=== PATIENT | female | born 1940 | race Asian ===

== ENCOUNTER → 2016-05-24 | Outpatient (CLI) | payer MEDICAID ==
[~2016-05-24] MED LIST: AMLO-511 PO; ASPI81 PO; ATEN25 PO; CALC-724 PO; FISH1CAP49 PO; HYDR25 PO; LOSA25TA21 PO; METF500T4 PO; SIMV-260 PO; VITAD1000 PO
== END | disposition home or self-care (01) ==
LOC: RADMN 13:14
PROVIDERS: ATTEND Internal Medicine
DX: M81.0 Age-related osteoporosis without current pathological fracture (principal); J84.10 Pulmonary fibrosis, unspecified; N28.1 Cyst of kidney, acquired; Z87.891 Personal history of nicotine dependence
CPT/HCPCS: 71250; 77080

== ENCOUNTER 2024-01-24 14:11 | Inpatient (IN) | payer MEDICARE, MEDICAID ==
[~2024-01-24] VITALS: Ht 160 cm; Wt 66.0 kg
[2024-01-24] VITALS (7 sets, daily range): BP systolic 139; BP diastolic 63; PULSE 71–110; RESP 16; TEMP 98; O2SAT 97–100
[~2024-01-24 14:11] MED LIST changes: +AMLO-257 PO; -AMLO-511 PO; +ASPI-1450 PO; -ASPI81 PO; +ATEN-73 PO; -ATEN25 PO; +CHOL100018 PO; -HYDR25 PO; +HYDR25TA84 PO; +LOSA-381 PO; -LOSA25TA21 PO; +METF-444 PO; -METF500T4 PO; -VITAD1000 PO
[2024-01-24] MEDS ORDERED: ETOMIDATE 2 MG/ML 10 ML VIAL ONE (14:24)
[2024-01-24] MEDS ORDERED: ROCURONIUM BROMIDE 10 MG/ML 5 ML VIAL ONE (14:25)
[2024-01-24] MEDS ORDERED: 0.9% SODIUM CHLORIDE 10 ML SYRINGE IVP PRN (14:45)
[2024-01-24] MEDS ORDERED: CALC-1174 PO (14:47)
[2024-01-24] MEDS ORDERED: OMEG100033 PO (14:47)
[2024-01-24] MEDS ORDERED: ATEN-72 PO (14:47)
[2024-01-24] MEDS ORDERED: CHOL25TA4 PO (14:47)
[2024-01-24] MEDS ORDERED: NOREPINEPHRINE 8 MG/0.9 % NACL 250 ML IV ONE (14:48)
[2024-01-24] MEDS: SODIUM CHLORIDE 0.9% 2,050 ML IV ONE (14:48)
[2024-01-24] MEDS ORDERED: SODIUM CHLORIDE 0.9% 500 ML IV ONE (15:00)
[2024-01-24] MEDS: PIPERACILLIN/TAZO 3.375 GM/D5W 50 ML IV ONE (15:16)
[2024-01-24 15:27] LABS: ABG BASE EXCESS 1.6 mmol/L (-2.0-3.0); ABG CARBOXYHEMOGLOBIN 0.3 % (0.5-1.5); ABG HCO3 25.5 mmol/L (21.0-28.0); ABG METHEMOGLOBIN 0.9 % (0.0-1.5); ABG OXYGEN CONTENT 14.4 mL/dL (15.0-23.0); ABG OXYGEN SATURATION 97.8 % (94.0-98.0); ABG OXYHEMOGLOBIN 96.6 % (94.0-98.0); ABG PCO2 50 mmHg (32.0-45.0); ABG PH 7.356 (7.350-7.450); ABG TOTAL HEMOGLOBIN 10.5 G/dL (12.0-16.0); PO2, ARTERIAL BG 85.7 mmHg (83.0-108.0); SOURCE, BLOOD GAS ARTERIAL
[2024-01-24 15:28] LABS: ALLEN TEST, BLOOD GAS POS; O2 DEVICE,BLOOD GAS VENTILATOR (ROOM AIR); SITE, BLOOD GAS RT RADIAL; VT, ABG 300 ml
[2024-01-24 15:29] LABS: PEEP,BG 5 cm H2O
[2024-01-24] MEDS: NOREPINEPHRINE 8 MG/0.9 % NACL 250 ML IV PRN (15:30)
[2024-01-24 15:33] LABS: ANION GAP 5 mmol/L (8-16); BASOPHILS % (AUTO) 0.6 % (0.0-2.0); CALCIUM, TOTAL 7.9 mg/dL (8.8-10.5); CARBON DIOXIDE 31 mmol/L (22-29); CHLORIDE 90 mmol/L (98-107); CREATININE 0.56 mg/dL (0.60-1.30); EOSINOPHILS % (AUTO) 0.1 % (1.0-6.0); GLOMERULAR FILTR. RATE CALC > 60 mL/min (>60); GLUCOSE,RANDOM 337 mg/dL (70-110); HEMATOCRIT 27.4 % (36-46); HEMOGLOBIN 8.9 g/dL (12.0-16.0); LYMPHOCYTES % (AUTO) 8.1 % (22.0-44.0); MEAN CORPUSCULAR HEMOGLOBIN 29.8 pg (26.0-34.0); MEAN CORPUSCULAR HGB CONC 32.5 G/dL (31.0-37.0); MEAN CORPUSCULAR VOLUME 92 fL (80-100); MONOCYTES # (AUTO) 0.6 K/uL (0.1-1.0); MONOCYTES % (AUTO) 4.9 % (2.0-9.0); NEUTROPHILS # (AUTO) 10.6 K/uL (1.8-7.7); PLATELET COUNT (AUTO) 560 K/uL (150-450); POTASSIUM 4.7 mmol/L (3.5-5.1); RED BLOOD CELL COUNT(AUTO) 2.99 MIL/uL (4.00-5.20); RED CELL DISTRIBUTION WIDTH 15.2 % (11.5-14.5); SODIUM SERUM 126 mmol/L (136-145); UREA NITROGEN, BLOOD 19 mg/dL (7-18); WHITE BLOOD COUNT (AUTO) 12.3 K/uL (4.5-11.0)
[2024-01-24 15:34] LABS: PROTHROMBIN TIME 12.3 SEC (9.4-11.6)
[2024-01-24 15:37] LABS: NEUTROPHILS % (AUTO) 86.3 % (40.0-70.0)
[2024-01-24 15:39] LABS: ALANINE AMINOTRANSFERASE 20 U/L (12-78); ALBUMIN 2.1 g/dL (3.4-5.0); ALKALINE PHOSPHATASE 90 U/L (46-116); ASPARTATE AMINOTRANSFERASE 16 U/L (15-37); BILIRUBIN,TOTAL 0.2 mg/dL (0.1-1.0); TOTAL PROTEIN, SERUM 6.6 g/dL (6.4-8.2)
[2024-01-24 15:41] LABS: LACTIC ACID 1.3 mmol/L (0.4-2.0)
[2024-01-24 15:56] LABS: B-TYPE NATRIURETIC PEPTIDE 88 pg/mL (0-100)
[2024-01-24] MEDS ORDERED: PROPOFOL 1000 MG/ISO-OSM 100 ML ONE (15:57)
[2024-01-24 16:05] LABS: TROPONIN I-HIGH SENSITIVITY 9 ng/L (<51)
[2024-01-24] MEDS: PROPOFOL 1000 MG/ISO-OSM 100 ML IV PRN ×2 (16:06→21:33)
[2024-01-24 16:27] LABS: COVID AG,FIA SOURCE NASAL SWAB
[2024-01-24 16:31] LABS: APPEARANCE,URINE TURBID (CLEAR); BILIRUBIN,URINE NEGATIVE (NEGATIVE); COLOR,URINE ORANGE (YELLOW); GLUCOSE, URINE (UA) 300-500 mg/dL (NEGATIVE); KETONES,URINE NEGATIVE (NEGATIVE); LEUKOCYTE ESTERASE ,URINE LARGE (NEGATIVE); NITRATE,URINE NEGATIVE (NEGATIVE); OCCULT BLOOD,URINE SMALL (NEGATIVE); PH,URINE 6.5 (5.0-8.0); PROTEIN,URINE 100-200,SEE CONFIRM mg/dL (NEGATIVE); SPECIFIC GRAVITIY, URINE 1.011 (1.003-1.030); UROBILINOGEN,URINE <=1.0 mg/dL (<=1.0)
[2024-01-24] MEDS ORDERED: ONDANSETRON HCL 4 MG/2 ML VIAL IVP PRN (16:45)
[2024-01-24] MEDS ORDERED: DEXTROSE 50%-WATER 25 GM/50 ML SYRINGE IVP PRN (16:45)
[2024-01-24] MEDS ORDERED: BISACODYL 10 MG RECTAL RECTAL SUPPOSITORY PR PRN (16:45)
[2024-01-24 16:47] LABS: SARS-COV2 (COVID) ANTIGEN,FIA Negative (Negative)
[2024-01-24 16:48] LABS: INFLUENZA TYPE A NEGATIVE FOR TYPE A (NEGATIVE); INFLUENZA TYPE B NEGATIVE FOR TYPE B (NEGATIVE)
[2024-01-24] MEDS: CefTRIAXone SODIUM 2 GM in DEXTROSE 5%-WATER 50 ML IV SCH (17:00)
[2024-01-24] MEDS: DOXYCYCLINE HYCLATE 100 MG in DEXTROSE 5%-WATER 100 ML IV SCH (17:00)
[2024-01-24 17:02] LABS: SULFOSALICYLIC ACID,URINE 3+ (Negative)
[2024-01-24 17:05] LABS: BACTERIA,URINE Many /HPF (None Seen); YEAST,URINE Many /HPF (None Seen)
[2024-01-24 17:06] LABS: WBC,URINE 26-50 /HPF (0-5)
[2024-01-24 17:08] LABS: CALCIUM OXALATE CRYSTALS,UR Few /LPF (None Seen); RENAL EPITHELIAL CELLS,URINE Moderate /LPF (None Seen)
[2024-01-24] MEDS: VANCOMYCIN 1.5 GM/WATER(PEG) 300 ML IV ONE (17:57)
[2024-01-24] MEDS ORDERED: SODIUM CHLORIDE 0.9% 250 ML IV ONE (21:08)
[2024-01-24] MEDS ORDERED: FentaNYL CIT 1000MCG/0.9% NACL 100 ML IV PRN (21:30)
[2024-01-24] MEDS: PIPERACILLIN/TAZO 3.375 GM/D5W 50 ML IV SCH (21:33)
[2024-01-24] MEDS: CHLORHEXIDINE GLUCONATE 2% TOWELETTE [2'S/6'S] TP SCH (21:34)
[2024-01-24] MEDS: HEPARIN SODIUM,PORCINE 5,000 UNITS/ML VIAL SQ SCH (23:50)
[2024-01-25] VITALS (13 sets, daily range): BP systolic 104–158; BP diastolic 45–66; PULSE 63–86; RESP 16–20; TEMP 95.6–99.1; O2SAT 98–100
[2024-01-25] MEDS: INSULIN LISPRO 100 UNITS/ML SQ PRN (00:08)
[2024-01-25 05:56] LABS: GLUCOMETER DEV NAME(LOC) ICUN.5; GLUCOSE,POINT OF CARE 285 MG/DL (70-110)
[2024-01-25 05:59] LABS: BASOPHILS % (AUTO) 0.7 % (0.0-2.0); EOSINOPHILS % (AUTO) 0.3 % (1.0-6.0); HEMATOCRIT 27.4 % (36-46); HEMOGLOBIN 9.1 g/dL (12.0-16.0); LYMPHOCYTES % (AUTO) 7.7 % (22.0-44.0); MEAN CORPUSCULAR HEMOGLOBIN 29.9 pg (26.0-34.0); MEAN CORPUSCULAR HGB CONC 33.3 G/dL (31.0-37.0); MEAN CORPUSCULAR VOLUME 90 fL (80-100); MONOCYTES # (AUTO) 0.6 K/uL (0.1-1.0); MONOCYTES % (AUTO) 4.6 % (2.0-9.0); PLATELET COUNT (AUTO) 587 K/uL (150-450); RED BLOOD CELL COUNT(AUTO) 3.05 MIL/uL (4.00-5.20); RED CELL DISTRIBUTION WIDTH 14.8 % (11.5-14.5); WHITE BLOOD COUNT (AUTO) 12.7 K/uL (4.5-11.0)
[2024-01-25 06:06] LABS: NEUTROPHILS % (AUTO) 86.7 % (40.0-70.0)
[2024-01-25 06:09] LABS: ANION GAP 7 mmol/L (8-16); CALCIUM, TOTAL 8.6 mg/dL (8.8-10.5); CARBON DIOXIDE 30 mmol/L (22-29); CHLORIDE 98 mmol/L (98-107); GLOMERULAR FILTR. RATE CALC > 60 mL/min (>60); GLUCOSE,RANDOM 244 mg/dL (70-110); POTASSIUM 3.6 mmol/L (3.5-5.1); SODIUM SERUM 135 mmol/L (136-145); UREA NITROGEN, BLOOD 14 mg/dL (7-18)
[2024-01-25] MEDS ORDERED: VANCOMYCIN 1GM/WATER(PEG/NADA) 200 ML IV SCH (08:00)
[2024-01-25] MEDS: VANCOMYCIN 750 MG/WATER(PEG) 150 ML IV SCH (08:07)
[2024-01-25] MEDS: PANTOPRAZOLE SODIUM 40 MG/VIAL IVP SCH (08:07)
[2024-01-25 11:21] LABS: GLUCOMETER DEV NAME(LOC) ICU.S6; GLUCOSE,POINT OF CARE 235 MG/DL (70-110)
[2024-01-25 23:56] LABS: GLUCOMETER DEV NAME(LOC) ICUN.5; GLUCOSE,POINT OF CARE 179 MG/DL (70-110)
[2024-01-25 23:56] LABS: GLUCOMETER DEV NAME(LOC) ICUN.5; GLUCOSE,POINT OF CARE 149 MG/DL (70-110)
[2024-01-26] VITALS (14 sets, daily range): BP systolic 101–151; BP diastolic 42–61; PULSE 78–101; RESP 16–22; TEMP 97.8–99.3; O2SAT 98–100
[2024-01-26 01:46] LABS: GLUCOMETER DEV NAME(LOC) ICUN.5; GLUCOSE,POINT OF CARE 180 MG/DL (70-110)
[2024-01-26] MEDS: NOREPINEPHRINE 8 MG/0.9 % NACL 250 ML IV PRN (02:00)
[2024-01-26 06:06] LABS: ANION GAP 10 mmol/L (8-16); CALCIUM, TOTAL 8.5 mg/dL (8.8-10.5); CARBON DIOXIDE 28 mmol/L (22-29); CHLORIDE 97 mmol/L (98-107); CREATININE 0.54 mg/dL (0.60-1.30); GLOMERULAR FILTR. RATE CALC > 60 mL/min (>60); GLUCOSE,RANDOM 248 mg/dL (70-110); PHOSPHORUS 2.8 mg/dL (2.5-4.9); SODIUM SERUM 135 mmol/L (136-145); UREA NITROGEN, BLOOD 14 mg/dL (7-18)
[2024-01-26 06:32] LABS: BASOPHILS % (AUTO) 0.8 % (0.0-2.0); EOSINOPHILS % (AUTO) 0.6 % (1.0-6.0); HEMATOCRIT 26.3 % (36-46); HEMOGLOBIN 8.9 g/dL (12.0-16.0); LYMPHOCYTES # (AUTO) 1.8 K/uL (1.0-4.8); LYMPHOCYTES % (AUTO) 16.9 % (22.0-44.0); MEAN CORPUSCULAR HEMOGLOBIN 30.5 pg (26.0-34.0); MEAN CORPUSCULAR HGB CONC 33.8 G/dL (31.0-37.0); MEAN CORPUSCULAR VOLUME 90 fL (80-100); MONOCYTES # (AUTO) 0.7 K/uL (0.1-1.0); MONOCYTES % (AUTO) 6.6 % (2.0-9.0); NEUTROPHILS # (AUTO) 8.1 K/uL (1.8-7.7); NEUTROPHILS % (AUTO) 75.1 % (40.0-70.0); PLATELET COUNT (AUTO) 521 K/uL (150-450); RED BLOOD CELL COUNT(AUTO) 2.92 MIL/uL (4.00-5.20); RED CELL DISTRIBUTION WIDTH 15.3 % (11.5-14.5); WHITE BLOOD COUNT (AUTO) 10.8 K/uL (4.5-11.0)
[2024-01-26 06:55] LABS: GLUCOMETER DEV NAME(LOC) ICUN.5; GLUCOSE,POINT OF CARE 233 MG/DL (70-110)
[2024-01-26 07:07] LABS: VANCOMYCIN,RANDOM 27.9 mcg/mL (25.0-50.0)
[2024-01-26] MEDS ORDERED: MAGNESIUM SULFATE 4 GM/WATER 100 ML IV PRN (08:45)
[2024-01-26] MEDS ORDERED: MAGNESIUM SULFATE 2 GM/WATER 50 ML IV PRN (08:45)
[2024-01-26] MEDS ORDERED: SODIUM CHLORIDE 0.9% 250 ML IV ONE (09:35)
[2024-01-26] MEDS: POTASSIUM CHL 10 MEQ/WATER 50 ML IV PRN (09:39)
[2024-01-26 11:10] LABS: ABG CARBOXYHEMOGLOBIN 0.2 % (0.5-1.5); ABG HCO3 25.5 mmol/L (21.0-28.0); ABG METHEMOGLOBIN 0.1 % (0.0-1.5); ABG OXYGEN CONTENT 12.4 mL/dL (15.0-23.0); ABG OXYGEN SATURATION 97.8 % (94.0-98.0); ABG OXYHEMOGLOBIN 97.5 % (94.0-98.0); ABG PCO2 37 mmHg (32.0-45.0); ABG TOTAL HEMOGLOBIN 8.9 G/dL (12.0-16.0); PO2, ARTERIAL BG 99.1 mmHg (83.0-108.0); SITE, BLOOD GAS ARTERIAL LINE; SOURCE, BLOOD GAS ARTERIAL; TEMPERATURE, FAHRENHEIT, BG 99.2 FAHREN (96.0-98.6)
[2024-01-26 11:11] LABS: ABG A-A DIFF O2 143.5 mmHg (10-20.0); O2 DEVICE,BLOOD GAS VENTILATOR (ROOM AIR); PEEP,BG 5 cm H2O; PRESSURE SUPPORT, BG 5 cm H2O; VENT MODE, BG CPAP (ROOM AIR)
[2024-01-26 11:12] LABS: SPONTANEOUS VT, BG 326 ml
[2024-01-26] MEDS: MAGNESIUM OXIDE 400 MG TABLET PO PRN (15:03)
[2024-01-26] MEDS: ACETAMINOPHEN 325 MG TABLET PO PRN (15:04)
[2024-01-26 17:56] LABS: GLUCOMETER DEV NAME(LOC) ICU.S6; GLUCOSE,POINT OF CARE 236 MG/DL (70-110)
[2024-01-26 20:06] LABS: GLUCOMETER DEV NAME(LOC) ICU.S6; GLUCOSE,POINT OF CARE 298 MG/DL (70-110)
[2024-01-26] MEDS: VANCOMYCIN 500 MG/WATER(PEG) 100 ML IV SCH (20:41)
[2024-01-27] VITALS (15 sets, daily range): BP systolic 108–159; BP diastolic 46–66; PULSE 67–86; RESP 16–22; TEMP 96.4–98.6; O2SAT 99–100
[2024-01-27 02:11] LABS: GLUCOMETER DEV NAME(LOC) ICU.S6; GLUCOSE,POINT OF CARE 279 MG/DL (70-110)
[2024-01-27] MEDS ORDERED: SODIUM CHLORIDE 0.9% 500 ML IV ONE (05:18)
[2024-01-27 05:38] LABS: ANION GAP 8 mmol/L (8-16); CALCIUM, TOTAL 8.6 mg/dL (8.8-10.5); CARBON DIOXIDE 29 mmol/L (22-29); CHLORIDE 99 mmol/L (98-107); CREATININE 0.72 mg/dL (0.60-1.30); GLOMERULAR FILTR. RATE CALC > 60 mL/min (>60); GLUCOSE,RANDOM 237 mg/dL (70-110); POTASSIUM 3.3 mmol/L (3.5-5.1); SODIUM SERUM 136 mmol/L (136-145); UREA NITROGEN, BLOOD 14 mg/dL (7-18)
[2024-01-27 05:41] LABS: BASOPHILS % (AUTO) 0.6 % (0.0-2.0); EOSINOPHILS % (AUTO) 1.6 % (1.0-6.0); HEMATOCRIT 25.7 % (36-46); HEMOGLOBIN 8.6 g/dL (12.0-16.0); LYMPHOCYTES # (AUTO) 1.8 K/uL (1.0-4.8); LYMPHOCYTES % (AUTO) 19.7 % (22.0-44.0); MEAN CORPUSCULAR HGB CONC 33.4 G/dL (31.0-37.0); MEAN CORPUSCULAR VOLUME 90 fL (80-100); MONOCYTES # (AUTO) 0.8 K/uL (0.1-1.0); MONOCYTES % (AUTO) 8.5 % (2.0-9.0); NEUTROPHILS # (AUTO) 6.3 K/uL (1.8-7.7); NEUTROPHILS % (AUTO) 69.6 % (40.0-70.0); PLATELET COUNT (AUTO) 488 K/uL (150-450); RED BLOOD CELL COUNT(AUTO) 2.86 MIL/uL (4.00-5.20); RED CELL DISTRIBUTION WIDTH 15.6 % (11.5-14.5)
[2024-01-27] MEDS: POTASSIUM CHLORIDE 20 MEQ ER TABLET PO PRN (06:54)
[2024-01-27] MEDS ORDERED: LIDOCAINE/PF 1% 30 ML VIAL ONE (09:24)
[2024-01-27] MEDS: DEXMEDETOMIDINE HCL 400 MCG in SODIUM CHLORIDE 0.9% 96 ML IV PRN (11:53)
[2024-01-27 13:16] LABS: GLUCOMETER DEV NAME(LOC) ICU.S6; GLUCOSE,POINT OF CARE 214 MG/DL (70-110)
[2024-01-27 17:46] LABS: GLUCOMETER DEV NAME(LOC) ICU.S6; GLUCOSE,POINT OF CARE 240 MG/DL (70-110)
[2024-01-27 19:45] LABS: GLUCOMETER DEV NAME(LOC) ICU.S6; GLUCOSE,POINT OF CARE 250 MG/DL (70-110)
[2024-01-28] VITALS (14 sets, daily range): BP systolic 97–129; BP diastolic 39–70; PULSE 61–70; RESP 13–25; TEMP 96.4–98.3; O2SAT 99–100
[2024-01-28 06:54] LABS: ANION GAP 8 mmol/L (8-16); CALCIUM, TOTAL 8.7 mg/dL (8.8-10.5); CARBON DIOXIDE 27 mmol/L (22-29); CHLORIDE 101 mmol/L (98-107); CREATININE 0.64 mg/dL (0.60-1.30); GLOMERULAR FILTR. RATE CALC > 60 mL/min (>60); GLUCOSE,RANDOM 197 mg/dL (70-110); POTASSIUM 3.9 mmol/L (3.5-5.1); SODIUM SERUM 136 mmol/L (136-145); UREA NITROGEN, BLOOD 14 mg/dL (7-18); VANCOMYCIN,RANDOM 22.8 mcg/mL (25.0-50.0)
[2024-01-28] MEDS ORDERED: LIDOCAINE/PF 1% 5 ML VIAL ONE (07:52)
[2024-01-28 08:40] LABS: GLUCOMETER DEV NAME(LOC) ICUN.5; GLUCOSE,POINT OF CARE 203 MG/DL (70-110)
[2024-01-28 08:40] LABS: GLUCOMETER DEV NAME(LOC) ICU.S6; GLUCOSE,POINT OF CARE 355 MG/DL (70-110)
[2024-01-28 12:16] LABS: GLUCOMETER DEV NAME(LOC) ICU.S6; GLUCOSE,POINT OF CARE 206 MG/DL (70-110)
[2024-01-28 16:22] LABS: ABG BASE EXCESS 2.9 mmol/L (-2.0-3.0); ABG CARBOXYHEMOGLOBIN 0.5 % (0.5-1.5); ABG METHEMOGLOBIN 0.3 % (0.0-1.5); ABG OXYGEN CONTENT 12.1 mL/dL (15.0-23.0); ABG OXYGEN SATURATION 98.5 % (94.0-98.0); ABG OXYHEMOGLOBIN 97.7 % (94.0-98.0); ABG PCO2 35 mmHg (32.0-45.0); ABG PH 7.491 (7.350-7.450); ABG TOTAL HEMOGLOBIN 8.6 G/dL (12.0-16.0); PO2, ARTERIAL BG 114.8 mmHg (83.0-108.0); SOURCE, BLOOD GAS ARTERIAL; TEMPERATURE, FAHRENHEIT, BG 97.3 FAHREN (96.0-98.6)
[2024-01-28 16:23] LABS: ABG A-A DIFF O2 130.6 mmHg (10-20.0); O2 DEVICE,BLOOD GAS VENTILATOR (ROOM AIR); SITE, BLOOD GAS ARTERIAL LINE
[2024-01-28 16:24] LABS: PEEP,BG 5 cm H2O; PRESSURE SUPPORT, BG 5 cm H2O; SPONTANEOUS VT, BG 403 ml; VENT MODE, BG Press. Support Vent. (ROOM AIR)
[2024-01-28 19:21] LABS: GLUCOMETER DEV NAME(LOC) ICU.S6; GLUCOSE,POINT OF CARE 147 MG/DL (70-110)
[2024-01-28 20:42] LABS: SPECIMENTYPE,BODY FLUID PLEURAL
[2024-01-28 20:44] LABS: APPEARANCE,SPUN,BODY FLUID CLEAR (CLEAR); APPEARANCE,UNSPUN,BODY FLUID HAZY (CLEAR); COLOR,BODY FLUID YELLOW (LT YELLOW); TOTAL VOLUME,BODY FLUID 20 mL
[2024-01-28 21:06] LABS: WBC, BODY FLUID 187 /cu. mm.
[2024-01-28 21:15] LABS: LYMPHOCYTES,BODY FLUID 14 %; NEUTROPHILS,BODY FLUID 38 %
[2024-01-28 21:16] LABS: OTHER CELLS,BODY FLUID 5
[2024-01-28 21:17] LABS: MONOCYTES,BODY FLUID 43 %
[2024-01-29] VITALS (11 sets, daily range): BP systolic 103–135; BP diastolic 43–69; PULSE 62–95; RESP 14–25; TEMP 97.9–99.6; O2SAT 99–100
[2024-01-29] MEDS ORDERED: SODIUM CHLORIDE 0.9% 250 ML IV ONE ×2 (03:31→08:40)
[2024-01-29 05:00] LABS: GLUCOMETER DEV NAME(LOC) ICUN.5; GLUCOSE,POINT OF CARE 258 MG/DL (70-110)
[2024-01-29 06:49] LABS: ANION GAP 8 mmol/L (8-16); CALCIUM, TOTAL 8.8 mg/dL (8.8-10.5); CARBON DIOXIDE 27 mmol/L (22-29); CHLORIDE 102 mmol/L (98-107); CREATININE 0.54 mg/dL (0.60-1.30); GLOMERULAR FILTR. RATE CALC > 60 mL/min (>60); GLUCOSE,RANDOM 292 mg/dL (70-110); SODIUM SERUM 137 mmol/L (136-145); UREA NITROGEN, BLOOD 15 mg/dL (7-18)
[2024-01-29] MEDS: VANCOMYCIN 750 MG/WATER(PEG) 150 ML IV SCH (08:44)
[2024-01-29 08:53] LABS: BASOPHILS % (AUTO) 1.2 % (0.0-2.0); EOSINOPHILS % (AUTO) 2.1 % (1.0-6.0); HEMATOCRIT 23.7 % (36-46); HEMOGLOBIN 7.7 g/dL (12.0-16.0); LYMPHOCYTES # (AUTO) 0.9 K/uL (1.0-4.8); MEAN CORPUSCULAR HEMOGLOBIN 29.6 pg (26.0-34.0); MEAN CORPUSCULAR HGB CONC 32.5 G/dL (31.0-37.0); MEAN CORPUSCULAR VOLUME 91 fL (80-100); MONOCYTES # (AUTO) 0.5 K/uL (0.1-1.0); MONOCYTES % (AUTO) 8.4 % (2.0-9.0); NEUTROPHILS # (AUTO) 4.6 K/uL (1.8-7.7); NEUTROPHILS % (AUTO) 73.3 % (40.0-70.0); PLATELET COUNT (AUTO) 406 K/uL (150-450); RED BLOOD CELL COUNT(AUTO) 2.61 MIL/uL (4.00-5.20); RED CELL DISTRIBUTION WIDTH 15.5 % (11.5-14.5); WHITE BLOOD COUNT (AUTO) 6.3 K/uL (4.5-11.0)
[2024-01-29 10:03] LABS: ABG BASE EXCESS 1.7 mmol/L (-2.0-3.0); ABG CARBOXYHEMOGLOBIN 0.2 % (0.5-1.5); ABG HCO3 25.9 mmol/L (21.0-28.0); ABG METHEMOGLOBIN 0.1 % (0.0-1.5); ABG OXYGEN CONTENT 12.3 mL/dL (15.0-23.0); ABG OXYGEN SATURATION 98.2 % (94.0-98.0); ABG OXYHEMOGLOBIN 97.9 % (94.0-98.0); ABG PCO2 43 mmHg (32.0-45.0); ABG PH 7.409 (7.350-7.450); ABG TOTAL HEMOGLOBIN 8.8 G/dL (12.0-16.0); O2 DEVICE,BLOOD GAS VENTILATOR (ROOM AIR); PO2, ARTERIAL BG 113.9 mmHg (83.0-108.0); SITE, BLOOD GAS ARTERIAL LINE; SOURCE, BLOOD GAS ARTERIAL; TEMPERATURE, FAHRENHEIT, BG 99.2 FAHREN (96.0-98.6)
[2024-01-29 10:04] LABS: CPAP, BG 5 cm H2O; PRESSURE SUPPORT, BG 8 cm H2O; SPONTANEOUS VT, BG 319 ml; VENT MODE, BG CPAP (ROOM AIR)
[2024-01-29] MEDS ORDERED: DEXTROSE 50%-WATER 25 GM/50 ML SYRINGE IVP PRN (15:30)
[2024-01-29] MEDS: INSULIN LISPRO 100 UNITS/ML SQ PRN (18:07)
[2024-01-29 18:11] LABS: GLUCOMETER DEV NAME(LOC) ICUN.5; GLUCOSE,POINT OF CARE 257 MG/DL (70-110)
[2024-01-29 18:11] LABS: GLUCOMETER DEV NAME(LOC) ICU.S6; GLUCOSE,POINT OF CARE 242 MG/DL (70-110)
[2024-01-29 20:11] LABS: GLUCOMETER DEV NAME(LOC) ICU.S6; GLUCOSE,POINT OF CARE 245 MG/DL (70-110)
[2024-01-29] MEDS: DOCUSATE SODIUM 100 MG/10 ML LIQUID UDCUP PEG SCH (21:14)
[2024-01-29] MEDS: INSULIN GLARGINE,HUM.REC.ANLOG 100 UNITS/ML SQ SCH (21:17)
[2024-01-30] VITALS: BP 135/54; PULSE 93; RESP 24; TEMP 99.2; O2SAT 100
[2024-01-30 00:51] LABS: GLUCOMETER DEV NAME(LOC) ICU.S6; GLUCOSE,POINT OF CARE 133 MG/DL (70-110)
[2024-01-30 00:51] LABS: GLUCOMETER DEV NAME(LOC) ICU.S6; GLUCOSE,POINT OF CARE 221 MG/DL (70-110)
[2024-01-30 04:00] VITALS: BP 139/53; PULSE 92; RESP 21; TEMP 99.2; O2SAT 94
[2024-01-30 05:51] LABS: GLUCOMETER DEV NAME(LOC) ICU.S6; GLUCOSE,POINT OF CARE 120 MG/DL (70-110)
[2024-01-30 06:35] LABS: BASOPHILS % (AUTO) 0.8 % (0.0-2.0); EOSINOPHILS % (AUTO) 0.7 % (1.0-6.0); HEMATOCRIT 25.8 % (36-46); HEMOGLOBIN 8.7 g/dL (12.0-16.0); LYMPHOCYTES # (AUTO) 1.3 K/uL (1.0-4.8); MEAN CORPUSCULAR HEMOGLOBIN 30.3 pg (26.0-34.0); MEAN CORPUSCULAR HGB CONC 33.6 G/dL (31.0-37.0); MEAN CORPUSCULAR VOLUME 90 fL (80-100); MONOCYTES # (AUTO) 0.7 K/uL (0.1-1.0); MONOCYTES % (AUTO) 8.3 % (2.0-9.0); NEUTROPHILS # (AUTO) 6.6 K/uL (1.8-7.7); NEUTROPHILS % (AUTO) 75.2 % (40.0-70.0); PLATELET COUNT (AUTO) 442 K/uL (150-450); RED BLOOD CELL COUNT(AUTO) 2.85 MIL/uL (4.00-5.20); RED CELL DISTRIBUTION WIDTH 15.7 % (11.5-14.5); WHITE BLOOD COUNT (AUTO) 8.8 K/uL (4.5-11.0)
[2024-01-30 06:39] LABS: ALANINE AMINOTRANSFERASE 29 U/L (12-78); ALBUMIN 1.7 g/dL (3.4-5.0); ALKALINE PHOSPHATASE 93 U/L (46-116); ANION GAP 8 mmol/L (8-16); ASPARTATE AMINOTRANSFERASE 32 U/L (15-37); BILIRUBIN,TOTAL 0.3 mg/dL (0.1-1.0); CALCIUM, TOTAL 8.8 mg/dL (8.8-10.5); CARBON DIOXIDE 27 mmol/L (22-29); CHLORIDE 103 mmol/L (98-107); CREATININE 0.57 mg/dL (0.60-1.30); GLOMERULAR FILTR. RATE CALC > 60 mL/min (>60); GLUCOSE,RANDOM 133 mg/dL (70-110); POTASSIUM 3.6 mmol/L (3.5-5.1); SODIUM SERUM 138 mmol/L (136-145); TOTAL PROTEIN, SERUM 6.5 g/dL (6.4-8.2); UREA NITROGEN, BLOOD 13 mg/dL (7-18)
[2024-01-30 08:00] VITALS: BP 135/55; PULSE 89; RESP 19; TEMP 98.1; O2SAT 97
[2024-01-30 12:00] VITALS: BP 149/64; PULSE 94; RESP 21; TEMP 98.2; O2SAT 97
[2024-01-30 16:00] VITALS: BP 126/53; PULSE 97; RESP 24; TEMP 98; O2SAT 98
[2024-01-30 20:00] VITALS: BP 128/55; PULSE 93; RESP 19; TEMP 98.3; O2SAT 97
[2024-01-30 20:00] LABS: GLUCOMETER DEV NAME(LOC) ICUN.5; GLUCOSE,POINT OF CARE 211 MG/DL (70-110)
[2024-01-30 20:00] LABS: GLUCOMETER DEV NAME(LOC) ICU.S6; GLUCOSE,POINT OF CARE 131 MG/DL (70-110)
[2024-01-30 21:06] LABS: GLUCOMETER DEV NAME(LOC) ICUN.5; GLUCOSE,POINT OF CARE 160 MG/DL (70-110)
[2024-01-31] VITALS: BP 145/59; PULSE 93; RESP 23; TEMP 98.2; O2SAT 96
[2024-01-31 04:00] VITALS: BP 151/62; PULSE 93; RESP 22; TEMP 98.6; O2SAT 98
[2024-01-31 05:35] LABS: ANION GAP 11 mmol/L (8-16); CALCIUM, TOTAL 8.6 mg/dL (8.8-10.5); CARBON DIOXIDE 24 mmol/L (22-29); CHLORIDE 103 mmol/L (98-107); CREATININE 0.73 mg/dL (0.60-1.30); GLOMERULAR FILTR. RATE CALC > 60 mL/min (>60); GLUCOSE,RANDOM 198 mg/dL (70-110); SODIUM SERUM 138 mmol/L (136-145); UREA NITROGEN, BLOOD 14 mg/dL (7-18)
[2024-01-31 05:42] LABS: BASOPHILS % (AUTO) 0.9 % (0.0-2.0); EOSINOPHILS % (AUTO) 3.1 % (1.0-6.0); HEMATOCRIT 25.5 % (36-46); HEMOGLOBIN 8.4 g/dL (12.0-16.0); LYMPHOCYTES # (AUTO) 1.9 K/uL (1.0-4.8); LYMPHOCYTES % (AUTO) 27.8 % (22.0-44.0); MEAN CORPUSCULAR HEMOGLOBIN 29.7 pg (26.0-34.0); MEAN CORPUSCULAR HGB CONC 32.9 G/dL (31.0-37.0); MEAN CORPUSCULAR VOLUME 90 fL (80-100); MONOCYTES # (AUTO) 0.5 K/uL (0.1-1.0); MONOCYTES % (AUTO) 7.2 % (2.0-9.0); NEUTROPHILS # (AUTO) 4.1 K/uL (1.8-7.7); PLATELET COUNT (AUTO) 447 K/uL (150-450); RED BLOOD CELL COUNT(AUTO) 2.82 MIL/uL (4.00-5.20); RED CELL DISTRIBUTION WIDTH 15.7 % (11.5-14.5); WHITE BLOOD COUNT (AUTO) 6.8 K/uL (4.5-11.0)
[2024-01-31 06:21] LABS: GLUCOMETER DEV NAME(LOC) ICU.S6; GLUCOSE,POINT OF CARE 191 MG/DL (70-110)
[2024-01-31 06:21] LABS: GLUCOMETER DEV NAME(LOC) ICU.S6; GLUCOSE,POINT OF CARE 117 MG/DL (70-110)
[2024-01-31 08:00] VITALS: BP 139/66; PULSE 111; RESP 25; TEMP 98.1; O2SAT 96
[2024-01-31 12:00] VITALS: BP 128/69; PULSE 95; RESP 25; TEMP 98.1; O2SAT 96
[2024-01-31 16:00] VITALS: BP 144/79; PULSE 89; PULSE 95; RESP 25; TEMP 98.1; O2SAT 96
[2024-01-31 17:41] LABS: GLUCOMETER DEV NAME(LOC) ICUN.5; GLUCOSE,POINT OF CARE 171 MG/DL (70-110)
[2024-01-31 20:00] VITALS: BP 126/74; PULSE 99; RESP 21; TEMP 98.7; O2SAT 94
[2024-01-31 21:05] LABS: GLUCOMETER DEV NAME(LOC) ICU.S6; GLUCOSE,POINT OF CARE 126 MG/DL (70-110)
[2024-01-31 21:05] LABS: GLUCOMETER DEV NAME(LOC) ICU.S6; GLUCOSE,POINT OF CARE 184 MG/DL (70-110)
[2024-02-01] VITALS: BP 127/59; PULSE 89; RESP 23; TEMP 98.4; O2SAT 95
[2024-02-01 04:00] VITALS: BP 141/79; PULSE 95; RESP 25; TEMP 98.5; O2SAT 96
[2024-02-01] MEDS ORDERED: SODIUM CHLORIDE 0.9% 250 ML IV ONE (05:16)
[2024-02-01 05:26] LABS: EOSINOPHILS % (AUTO) 6.3 % (1.0-6.0); HEMATOCRIT 23.7 % (36-46); HEMOGLOBIN 7.9 g/dL (12.0-16.0); LYMPHOCYTES # (AUTO) 1.5 K/uL (1.0-4.8); LYMPHOCYTES % (AUTO) 24.5 % (22.0-44.0); MEAN CORPUSCULAR HEMOGLOBIN 30.4 pg (26.0-34.0); MEAN CORPUSCULAR HGB CONC 33.3 G/dL (31.0-37.0); MEAN CORPUSCULAR VOLUME 91 fL (80-100); MONOCYTES # (AUTO) 0.4 K/uL (0.1-1.0); NEUTROPHILS # (AUTO) 3.7 K/uL (1.8-7.7); NEUTROPHILS % (AUTO) 61.2 % (40.0-70.0); PLATELET COUNT (AUTO) 424 K/uL (150-450); RED BLOOD CELL COUNT(AUTO) 2.59 MIL/uL (4.00-5.20)
[2024-02-01 05:57] LABS: ALANINE AMINOTRANSFERASE 27 U/L (12-78); ALBUMIN 1.6 g/dL (3.4-5.0); ALKALINE PHOSPHATASE 84 U/L (46-116); ASPARTATE AMINOTRANSFERASE 22 U/L (15-37); BILIRUBIN,TOTAL 0.3 mg/dL (0.1-1.0); CALCIUM, TOTAL 8.2 mg/dL (8.8-10.5); CREATININE 0.68 mg/dL (0.60-1.30); GLOMERULAR FILTR. RATE CALC > 60 mL/min (>60); GLUCOSE,RANDOM 160 mg/dL (70-110); UREA NITROGEN, BLOOD 12 mg/dL (7-18); VANCOMYCIN,RANDOM 18.1 mcg/mL (25.0-50.0)
[2024-02-01 06:11] LABS: GLUCOMETER DEV NAME(LOC) ICUN.5; GLUCOSE,POINT OF CARE 122 MG/DL (70-110)
[2024-02-01 06:13] LABS: ANION GAP 8 mmol/L (8-16); CARBON DIOXIDE 27 mmol/L (22-29); CHLORIDE 102 mmol/L (98-107); POTASSIUM 3.3 mmol/L (3.5-5.1); SODIUM SERUM 137 mmol/L (136-145)
[2024-02-01 08:00] VITALS: BP 118/67; PULSE 96; RESP 24; TEMP 98.8; O2SAT 95
[2024-02-01 10:10] LABS: GLUCOMETER DEV NAME(LOC) ICUN.5; GLUCOSE,POINT OF CARE 155 MG/DL (70-110)
[2024-02-01 12:00] VITALS: BP 131/63; PULSE 91; RESP 19; TEMP 99; O2SAT 94
[2024-02-01 12:10] LABS: GLUCOMETER DEV NAME(LOC) ICUN.5; GLUCOSE,POINT OF CARE 179 MG/DL (70-110)
[2024-02-01 16:00] VITALS: BP 127/65; PULSE 101; RESP 25; TEMP 99; O2SAT 94
[2024-02-01 19:50] LABS: GLUCOMETER DEV NAME(LOC) ICU.S6; GLUCOSE,POINT OF CARE 236 MG/DL (70-110)
[2024-02-01 20:00] VITALS: BP 126/52; PULSE 97; RESP 23; TEMP 98.6; O2SAT 96
[2024-02-02] VITALS (7 sets, daily range): BP systolic 122–150; BP diastolic 59–81; PULSE 88–110; RESP 18–21; TEMP 98–98.5; O2SAT 94–97
[2024-02-02 00:01] LABS: GLUCOMETER DEV NAME(LOC) ICU.S6; GLUCOSE,POINT OF CARE 214 MG/DL (70-110)
[2024-02-02 00:10] LABS: GLUCOMETER DEV NAME(LOC) ICUN.5; GLUCOSE,POINT OF CARE 108 MG/DL (70-110)
[2024-02-02 05:42] LABS: BASOPHILS % (AUTO) 0.8 % (0.0-2.0); HEMATOCRIT 23.5 % (36-46); HEMOGLOBIN 7.8 g/dL (12.0-16.0); LYMPHOCYTES # (AUTO) 1.4 K/uL (1.0-4.8); LYMPHOCYTES % (AUTO) 24.8 % (22.0-44.0); MEAN CORPUSCULAR HGB CONC 32.9 G/dL (31.0-37.0); MEAN CORPUSCULAR VOLUME 91 fL (80-100); MONOCYTES # (AUTO) 0.3 K/uL (0.1-1.0); MONOCYTES % (AUTO) 6.2 % (2.0-9.0); NEUTROPHILS # (AUTO) 3.4 K/uL (1.8-7.7); NEUTROPHILS % (AUTO) 62.2 % (40.0-70.0); PLATELET COUNT (AUTO) 404 K/uL (150-450); RED BLOOD CELL COUNT(AUTO) 2.59 MIL/uL (4.00-5.20); WHITE BLOOD COUNT (AUTO) 5.5 K/uL (4.5-11.0)
[2024-02-02 06:04] LABS: ALBUMIN 1.6 g/dL (3.4-5.0); ANION GAP 9 mmol/L (8-16); CARBON DIOXIDE 25 mmol/L (22-29); CHLORIDE 101 mmol/L (98-107); CREATININE 0.53 mg/dL (0.60-1.30); GLOMERULAR FILTR. RATE CALC > 60 mL/min (>60); GLUCOSE,RANDOM 217 mg/dL (70-110); POTASSIUM 3.7 mmol/L (3.5-5.1); SODIUM SERUM 135 mmol/L (136-145); UREA NITROGEN, BLOOD 12 mg/dL (7-18)
[2024-02-02 08:16] LABS: GLUCOMETER DEV NAME(LOC) ICUN.5; GLUCOSE,POINT OF CARE 221 MG/DL (70-110)
[2024-02-02] MEDS ORDERED: SODIUM CHLORIDE 0.9% 250 ML IV ONE (22:16)
[2024-02-03] VITALS (7 sets, daily range): BP systolic 103–149; BP diastolic 37–74; PULSE 89–105; RESP 18–20; TEMP 98–99.1; O2SAT 92–97
[2024-02-03 00:21] LABS: GLUCOMETER DEV NAME(LOC) 5S.1C; GLUCOSE,POINT OF CARE 297 MG/DL (70-110)
[2024-02-03 06:50] LABS: BASOPHILS % (AUTO) 0.8 % (0.0-2.0); EOSINOPHILS % (AUTO) 4.1 % (1.0-6.0); HEMATOCRIT 23.5 % (36-46); HEMOGLOBIN 7.8 g/dL (12.0-16.0); LYMPHOCYTES # (AUTO) 1.2 K/uL (1.0-4.8); LYMPHOCYTES % (AUTO) 19.8 % (22.0-44.0); MEAN CORPUSCULAR HEMOGLOBIN 30.1 pg (26.0-34.0); MEAN CORPUSCULAR HGB CONC 33.2 G/dL (31.0-37.0); MEAN CORPUSCULAR VOLUME 91 fL (80-100); MONOCYTES # (AUTO) 0.4 K/uL (0.1-1.0); MONOCYTES % (AUTO) 7.1 % (2.0-9.0); NEUTROPHILS % (AUTO) 68.2 % (40.0-70.0); PLATELET COUNT (AUTO) 428 K/uL (150-450); WHITE BLOOD COUNT (AUTO) 5.8 K/uL (4.5-11.0)
[2024-02-03 07:11] LABS: ALANINE AMINOTRANSFERASE 29 U/L (12-78); ALBUMIN 1.6 g/dL (3.4-5.0); ALKALINE PHOSPHATASE 93 U/L (46-116); ANION GAP 10 mmol/L (8-16); ASPARTATE AMINOTRANSFERASE 31 U/L (15-37); BILIRUBIN,TOTAL 0.3 mg/dL (0.1-1.0); CALCIUM, TOTAL 8.1 mg/dL (8.8-10.5); CARBON DIOXIDE 25 mmol/L (22-29); CHLORIDE 101 mmol/L (98-107); CREATININE 0.53 mg/dL (0.60-1.30); GLOMERULAR FILTR. RATE CALC > 60 mL/min (>60); GLUCOSE,RANDOM 248 mg/dL (70-110); POTASSIUM 3.2 mmol/L (3.5-5.1); SODIUM SERUM 136 mmol/L (136-145); TOTAL PROTEIN, SERUM 5.8 g/dL (6.4-8.2); UREA NITROGEN, BLOOD 11 mg/dL (7-18)
[2024-02-03 11:21] LABS: GLUCOMETER DEV NAME(LOC) 5N.1D; GLUCOSE,POINT OF CARE 256 MG/DL (70-110)
[2024-02-03 20:06] LABS: GLUCOMETER DEV NAME(LOC) 5N.1D; GLUCOSE,POINT OF CARE 200 MG/DL (70-110)
[2024-02-03 20:10] LABS: GLUCOMETER DEV NAME(LOC) 5S.1C; GLUCOSE,POINT OF CARE 246 MG/DL (70-110)
[2024-02-03 20:10] LABS: GLUCOMETER DEV NAME(LOC) 5S.1C; GLUCOSE,POINT OF CARE 276 MG/DL (70-110)
[2024-02-04 04:00] VITALS: BP 123/64; PULSE 92; RESP 18; TEMP 97.9; O2SAT 96
[2024-02-04 07:02] LABS: ANION GAP 7 mmol/L (8-16); CARBON DIOXIDE 26 mmol/L (22-29); CHLORIDE 102 mmol/L (98-107); CREATININE 0.63 mg/dL (0.60-1.30); GLOMERULAR FILTR. RATE CALC > 60 mL/min (>60); GLUCOSE,RANDOM 187 mg/dL (70-110); POTASSIUM 3.9 mmol/L (3.5-5.1); SODIUM SERUM 135 mmol/L (136-145); UREA NITROGEN, BLOOD 10 mg/dL (7-18)
[2024-02-04 07:26] LABS: VANCOMYCIN,RANDOM 7.4 mcg/mL (25.0-50.0)
[2024-02-04 08:39] VITALS: BP 132/75; PULSE 92; RESP 18; TEMP 98.2; O2SAT 96
[2024-02-04] MEDS ORDERED: SODIUM CHLORIDE 0.9% 500 ML IV ONE (09:11)
[2024-02-04 11:16] LABS: GLUCOMETER DEV NAME(LOC) 5N.2C; GLUCOSE,POINT OF CARE 212 MG/DL (70-110)
[2024-02-04 12:06] VITALS: BP 128/64; PULSE 89; RESP 19; TEMP 98.1; O2SAT 97
[2024-02-04 15:56] VITALS: BP 127/55; PULSE 96; RESP 18; TEMP 98; O2SAT 98
[2024-02-04 17:36] LABS: GLUCOMETER DEV NAME(LOC) 5N.1D; GLUCOSE,POINT OF CARE 203 MG/DL (70-110)
[2024-02-04 17:36] LABS: GLUCOMETER DEV NAME(LOC) 5N.1D; GLUCOSE,POINT OF CARE 217 MG/DL (70-110)
[2024-02-04 20:04] VITALS: BP 132/63; PULSE 96; RESP 19; TEMP 98.4; O2SAT 96
[2024-02-04] MEDS: VANCOMYCIN 500 MG/WATER(PEG) 100 ML IV SCH (20:29)
[2024-02-04 23:11] LABS: GLUCOMETER DEV NAME(LOC) 5S.1C; GLUCOSE,POINT OF CARE 240 MG/DL (70-110)
[2024-02-04 23:11] LABS: GLUCOMETER DEV NAME(LOC) 5N.1D; GLUCOSE,POINT OF CARE 284 MG/DL (70-110)
[2024-02-04 23:50] VITALS: BP 123/51; PULSE 97; RESP 17; TEMP 98.1; O2SAT 95
[2024-02-05] VITALS (10 sets, daily range): BP systolic 121–143; BP diastolic 61–74; PULSE 84–103; RESP 17–19; TEMP 97.9–98.3; O2SAT 93–99
[2024-02-05 06:52] LABS: ANION GAP 7 mmol/L (8-16); CALCIUM, TOTAL 8.5 mg/dL (8.8-10.5); CARBON DIOXIDE 25 mmol/L (22-29); CHLORIDE 101 mmol/L (98-107); CREATININE 0.66 mg/dL (0.60-1.30); GLOMERULAR FILTR. RATE CALC > 60 mL/min (>60); GLUCOSE,RANDOM 288 mg/dL (70-110); SODIUM SERUM 133 mmol/L (136-145); UREA NITROGEN, BLOOD 10 mg/dL (7-18)
[2024-02-05 09:30] LABS: GLUCOMETER DEV NAME(LOC) 5N.1D; GLUCOSE,POINT OF CARE 258 MG/DL (70-110)
[2024-02-05 21:30] LABS: GLUCOMETER DEV NAME(LOC) 5S.2D; GLUCOSE,POINT OF CARE 225 MG/DL (70-110)
[2024-02-05 21:31] LABS: GLUCOMETER DEV NAME(LOC) 5S.2D; GLUCOSE,POINT OF CARE 191 MG/DL (70-110)
[2024-02-05 23:15] LABS: GLUCOMETER DEV NAME(LOC) 5S.1C; GLUCOSE,POINT OF CARE 232 MG/DL (70-110)
[2024-02-06] VITALS (9 sets, daily range): BP systolic 121–150; BP diastolic 51–76; PULSE 94–107; RESP 16–19; TEMP 98.1–98.8; O2SAT 96–98
[2024-02-06 06:52] LABS: ANION GAP 10 mmol/L (8-16); CALCIUM, TOTAL 8.2 mg/dL (8.8-10.5); CARBON DIOXIDE 25 mmol/L (22-29); CHLORIDE 99 mmol/L (98-107); CREATININE 0.64 mg/dL (0.60-1.30); GLOMERULAR FILTR. RATE CALC > 60 mL/min (>60); GLUCOSE,RANDOM 269 mg/dL (70-110); POTASSIUM 3.7 mmol/L (3.5-5.1); SODIUM SERUM 133 mmol/L (136-145); UREA NITROGEN, BLOOD 10 mg/dL (7-18)
[2024-02-06 08:12] LABS: VANCOMYCIN,RANDOM 20.1 mcg/mL (25.0-50.0)
[2024-02-06 09:58] LABS: BASOPHILS % (AUTO) 0.8 % (0.0-2.0); EOSINOPHILS % (AUTO) 5.9 % (1.0-6.0); HEMATOCRIT 26.4 % (36-46); HEMOGLOBIN 8.7 g/dL (12.0-16.0); LYMPHOCYTES # (AUTO) 1.6 K/uL (1.0-4.8); LYMPHOCYTES % (AUTO) 28.9 % (22.0-44.0); MEAN CORPUSCULAR HEMOGLOBIN 30.6 pg (26.0-34.0); MEAN CORPUSCULAR VOLUME 93 fL (80-100); MONOCYTES # (AUTO) 0.4 K/uL (0.1-1.0); MONOCYTES % (AUTO) 7.2 % (2.0-9.0); NEUTROPHILS # (AUTO) 3.1 K/uL (1.8-7.7); NEUTROPHILS % (AUTO) 57.2 % (40.0-70.0); PLATELET COUNT (AUTO) 499 K/uL (150-450); RED BLOOD CELL COUNT(AUTO) 2.84 MIL/uL (4.00-5.20); RED CELL DISTRIBUTION WIDTH 17.1 % (11.5-14.5); WHITE BLOOD COUNT (AUTO) 5.4 K/uL (4.5-11.0)
[2024-02-06] MEDS: DEXTROSE 5%-LACTATED RINGERS 1,000 ML IV SCH (20:14)
[2024-02-06 20:25] LABS: GLUCOMETER DEV NAME(LOC) 5N.2C; GLUCOSE,POINT OF CARE 253 MG/DL (70-110)
[2024-02-06 20:26] LABS: GLUCOMETER DEV NAME(LOC) 5S.2D; GLUCOSE,POINT OF CARE 255 MG/DL (70-110)
[2024-02-06 23:36] LABS: GLUCOMETER DEV NAME(LOC) 6N.2B; GLUCOSE,POINT OF CARE 145 MG/DL (70-110)
[2024-02-07 03:37] VITALS: BP 151/76; PULSE 102; RESP 18; TEMP 98.8; O2SAT 97
[2024-02-07 07:12] VITALS: BP 129/67; PULSE 109; RESP 18; TEMP 98.6; O2SAT 98
[2024-02-07 07:15] LABS: ANION GAP 8 mmol/L (8-16); CALCIUM, TOTAL 8.6 mg/dL (8.8-10.5); CARBON DIOXIDE 24 mmol/L (22-29); CHLORIDE 100 mmol/L (98-107); CREATININE 0.75 mg/dL (0.60-1.30); GLOMERULAR FILTR. RATE CALC > 60 mL/min (>60); GLUCOSE,RANDOM 210 mg/dL (70-110); POTASSIUM 3.4 mmol/L (3.5-5.1); SODIUM SERUM 132 mmol/L (136-145); UREA NITROGEN, BLOOD 8 mg/dL (7-18)
[2024-02-07 08:31] LABS: GLUCOMETER DEV NAME(LOC) 6N.2B; GLUCOSE,POINT OF CARE 220 MG/DL (70-110)
[2024-02-07] MEDS: VANCOMYCIN 1GM/WATER(PEG/NADA) 200 ML IV SCH (08:43)
[2024-02-07 12:35] LABS: GLUCOMETER DEV NAME(LOC) 4E.2; GLUCOSE,POINT OF CARE 199 MG/DL (70-110)
[2024-02-07 12:36] LABS: GLUCOMETER DEV NAME(LOC) 4E.2; GLUCOSE,POINT OF CARE 157 MG/DL (70-110)
[2024-02-07 14:28] VITALS: BP 137/73; PULSE 107; RESP 18; TEMP 99.2; O2SAT 95
[2024-02-07] MEDS: AMPICILLIN SODIUM/SULBACTAM NA 3 GM in SODIUM CHLORIDE 0.9% 100 ML IV SCH (16:40)
[2024-02-07 19:35] VITALS: BP 135/65; PULSE 107; RESP 18; TEMP 99.2; O2SAT 96
[2024-02-07 22:00] LABS: GLUCOMETER DEV NAME(LOC) 4E.2; GLUCOSE,POINT OF CARE 214 MG/DL (70-110)
[2024-02-08 05:30] VITALS: BP 101/74; PULSE 96; RESP 18; TEMP 98.6; O2SAT 98
[2024-02-08 08:06] VITALS: BP 142/63; PULSE 104; RESP 18; TEMP 97.8; O2SAT 96
[2024-02-08] MEDS ORDERED: SODIUM CHLORIDE 0.9% 500 ML IV ONE (10:15)
[2024-02-08 12:06] LABS: GLUCOMETER DEV NAME(LOC) 6N.2B; GLUCOSE,POINT OF CARE 153 MG/DL (70-110)
[2024-02-08 12:06] LABS: GLUCOMETER DEV NAME(LOC) 6N.2B; GLUCOSE,POINT OF CARE 163 MG/DL (70-110)
[2024-02-08 12:06] LABS: GLUCOMETER DEV NAME(LOC) 6N.2B; GLUCOSE,POINT OF CARE 162 MG/DL (70-110)
[2024-02-08 16:02] VITALS: BP 137/70; PULSE 96; RESP 18; TEMP 98.1; O2SAT 99
[2024-02-08 19:39] VITALS: BP 139/68; PULSE 104; RESP 18; TEMP 98.5; O2SAT 94
[2024-02-09 01:55] LABS: GLUCOMETER DEV NAME(LOC) 4E.2; GLUCOSE,POINT OF CARE 226 MG/DL (70-110)
[2024-02-09 01:55] LABS: GLUCOMETER DEV NAME(LOC) 4E.2; GLUCOSE,POINT OF CARE 180 MG/DL (70-110)
[2024-02-09 04:50] VITALS: BP 118/65; PULSE 94; RESP 18; TEMP 99; O2SAT 95
[2024-02-09 06:46] LABS: BASOPHILS % (AUTO) 1.4 % (0.0-2.0); EOSINOPHILS % (AUTO) 6.2 % (1.0-6.0); HEMATOCRIT 23.9 % (36-46); HEMOGLOBIN 7.9 g/dL (12.0-16.0); LYMPHOCYTES # (AUTO) 1.9 K/uL (1.0-4.8); LYMPHOCYTES % (AUTO) 38.8 % (22.0-44.0); MEAN CORPUSCULAR HEMOGLOBIN 30.6 pg (26.0-34.0); MEAN CORPUSCULAR HGB CONC 33.1 G/dL (31.0-37.0); MEAN CORPUSCULAR VOLUME 92 fL (80-100); MONOCYTES # (AUTO) 0.5 K/uL (0.1-1.0); MONOCYTES % (AUTO) 9.5 % (2.0-9.0); NEUTROPHILS # (AUTO) 2.1 K/uL (1.8-7.7); NEUTROPHILS % (AUTO) 44.1 % (40.0-70.0); PLATELET COUNT (AUTO) 510 K/uL (150-450); RED BLOOD CELL COUNT(AUTO) 2.58 MIL/uL (4.00-5.20); RED CELL DISTRIBUTION WIDTH 17.5 % (11.5-14.5); WHITE BLOOD COUNT (AUTO) 4.8 K/uL (4.5-11.0)
[2024-02-09 07:07] VITALS: BP 128/74; PULSE 92; RESP 18; TEMP 98.8; O2SAT 96
[2024-02-09 07:07] LABS: ALANINE AMINOTRANSFERASE 89 U/L (12-78); ALBUMIN 1.6 g/dL (3.4-5.0); ALKALINE PHOSPHATASE 93 U/L (46-116); ANION GAP 5 mmol/L (8-16); ASPARTATE AMINOTRANSFERASE 81 U/L (15-37); BILIRUBIN,TOTAL 0.2 mg/dL (0.1-1.0); CALCIUM, TOTAL 8.6 mg/dL (8.8-10.5); CARBON DIOXIDE 26 mmol/L (22-29); CHLORIDE 102 mmol/L (98-107); CREATININE 0.69 mg/dL (0.60-1.30); GLOMERULAR FILTR. RATE CALC > 60 mL/min (>60); GLUCOSE,RANDOM 203 mg/dL (70-110); POTASSIUM 3.5 mmol/L (3.5-5.1); SODIUM SERUM 133 mmol/L (136-145); TOTAL PROTEIN, SERUM 5.8 g/dL (6.4-8.2); UREA NITROGEN, BLOOD 9 mg/dL (7-18)
[2024-02-09 12:05] LABS: GLUCOMETER DEV NAME(LOC) 6N.2B; GLUCOSE,POINT OF CARE 187 MG/DL (70-110)
[2024-02-09 15:16] VITALS: BP 134/78; PULSE 96; RESP 20; TEMP 98.2; O2SAT 95
[2024-02-09 17:41] LABS: GLUCOMETER DEV NAME(LOC) 6N.2B; GLUCOSE,POINT OF CARE 264 MG/DL (70-110)
[2024-02-09 19:11] LABS: GLUCOMETER DEV NAME(LOC) 4E.2; GLUCOSE,POINT OF CARE 174 MG/DL (70-110)
[2024-02-09 20:08] VITALS: BP 120/63; PULSE 99; RESP 18; TEMP 98.4; O2SAT 94
[2024-02-09 23:06] LABS: GLUCOMETER DEV NAME(LOC) 4E.2; GLUCOSE,POINT OF CARE 162 MG/DL (70-110)
[2024-02-10 01:41] LABS: GLUCOMETER DEV NAME(LOC) 4E.2; GLUCOSE,POINT OF CARE 191 MG/DL (70-110)
[2024-02-10 04:33] VITALS: BP 127/66; PULSE 87; RESP 18; TEMP 97.6; O2SAT 98
[2024-02-10 06:35] LABS: ALANINE AMINOTRANSFERASE 83 U/L (12-78); ALBUMIN 1.8 g/dL (3.4-5.0); ALKALINE PHOSPHATASE 92 U/L (46-116); ANION GAP 9 mmol/L (8-16); ASPARTATE AMINOTRANSFERASE 63 U/L (15-37); BASOPHILS % (AUTO) 1.1 % (0.0-2.0); BILIRUBIN,TOTAL 0.2 mg/dL (0.1-1.0); CARBON DIOXIDE 25 mmol/L (22-29); CHLORIDE 102 mmol/L (98-107); CREATININE 0.69 mg/dL (0.60-1.30); EOSINOPHILS % (AUTO) 7.9 % (1.0-6.0); GLOMERULAR FILTR. RATE CALC > 60 mL/min (>60); GLUCOSE,RANDOM 186 mg/dL (70-110); HEMATOCRIT 25.4 % (36-46); HEMOGLOBIN 8.2 g/dL (12.0-16.0); LYMPHOCYTES # (AUTO) 1.8 K/uL (1.0-4.8); LYMPHOCYTES % (AUTO) 38.5 % (22.0-44.0); MEAN CORPUSCULAR HEMOGLOBIN 30.8 pg (26.0-34.0); MEAN CORPUSCULAR HGB CONC 32.3 G/dL (31.0-37.0); MEAN CORPUSCULAR VOLUME 95 fL (80-100); MONOCYTES # (AUTO) 0.5 K/uL (0.1-1.0); NEUTROPHILS # (AUTO) 1.9 K/uL (1.8-7.7); NEUTROPHILS % (AUTO) 41.5 % (40.0-70.0); PLATELET COUNT (AUTO) 499 K/uL (150-450); POTASSIUM 3.3 mmol/L (3.5-5.1); RED BLOOD CELL COUNT(AUTO) 2.66 MIL/uL (4.00-5.20); RED CELL DISTRIBUTION WIDTH 18.3 % (11.5-14.5); SODIUM SERUM 136 mmol/L (136-145); TOTAL PROTEIN, SERUM 5.9 g/dL (6.4-8.2); UREA NITROGEN, BLOOD 11 mg/dL (7-18); WHITE BLOOD COUNT (AUTO) 4.6 K/uL (4.5-11.0)
[2024-02-10 07:05] LABS: GLUCOMETER DEV NAME(LOC) 4E.2; GLUCOSE,POINT OF CARE 174 MG/DL (70-110)
[2024-02-10 08:26] VITALS: BP 141/60; PULSE 98; RESP 20; TEMP 97.8; O2SAT 96
[2024-02-10 17:45] LABS: GLUCOMETER DEV NAME(LOC) 4E.2; GLUCOSE,POINT OF CARE 179 MG/DL (70-110)
[2024-02-10 18:11] LABS: GLUCOMETER DEV NAME(LOC) 4E.2; GLUCOSE,POINT OF CARE 214 MG/DL (70-110)
[2024-02-10 20:30] VITALS: BP 132/48; PULSE 96; RESP 19; TEMP 98.3; O2SAT 96
[2024-02-11 06:01] LABS: GLUCOMETER DEV NAME(LOC) 6N.2B; GLUCOSE,POINT OF CARE 201 MG/DL (70-110)
[2024-02-11 06:01] LABS: GLUCOMETER DEV NAME(LOC) 6N.2B; GLUCOSE,POINT OF CARE 193 MG/DL (70-110)
[2024-02-11 06:03] VITALS: BP 140/63; PULSE 107; RESP 20; TEMP 98.4; O2SAT 97
[2024-02-11 07:55] VITALS: BP 133/72; PULSE 116; RESP 20; TEMP 98.4; O2SAT 96
[2024-02-11 08:14] LABS: ALANINE AMINOTRANSFERASE 73 U/L (12-78); ALBUMIN 1.7 g/dL (3.4-5.0); ALKALINE PHOSPHATASE 99 U/L (46-116); ANION GAP 10 mmol/L (8-16); ASPARTATE AMINOTRANSFERASE 56 U/L (15-37); BILIRUBIN,TOTAL 0.2 mg/dL (0.1-1.0); CALCIUM, TOTAL 8.5 mg/dL (8.8-10.5); CARBON DIOXIDE 25 mmol/L (22-29); CHLORIDE 105 mmol/L (98-107); CREATININE 0.68 mg/dL (0.60-1.30); GLOMERULAR FILTR. RATE CALC > 60 mL/min (>60); GLUCOSE,RANDOM 169 mg/dL (70-110); POTASSIUM 3.8 mmol/L (3.5-5.1); SODIUM SERUM 140 mmol/L (136-145); TOTAL PROTEIN, SERUM 5.7 g/dL (6.4-8.2); UREA NITROGEN, BLOOD 10 mg/dL (7-18)
[2024-02-11 11:11] LABS: GLUCOMETER DEV NAME(LOC) 4E.2; GLUCOSE,POINT OF CARE 189 MG/DL (70-110)
[2024-02-11 15:50] VITALS: BP 149/77; PULSE 112; RESP 22; TEMP 99.6; O2SAT 94
[2024-02-11 19:54] VITALS: BP 149/65; PULSE 105; RESP 20; TEMP 98.6; O2SAT 98
[2024-02-12 01:06] LABS: GLUCOMETER DEV NAME(LOC) 4E.2; GLUCOSE,POINT OF CARE 215 MG/DL (70-110)
[2024-02-12 02:36] LABS: GLUCOMETER DEV NAME(LOC) 6N.2B; GLUCOSE,POINT OF CARE 206 MG/DL (70-110)
[2024-02-12 02:36] LABS: GLUCOMETER DEV NAME(LOC) 6N.2B; GLUCOSE,POINT OF CARE 162 MG/DL (70-110)
[2024-02-12 05:46] VITALS: BP 131/82; PULSE 107; RESP 20; TEMP 98.6; O2SAT 96
[2024-02-12 07:35] LABS: GLUCOMETER DEV NAME(LOC) 6N.2B; GLUCOSE,POINT OF CARE 255 MG/DL (70-110)
[2024-02-12 08:00] VITALS: BP 151/47; PULSE 105; RESP 18; TEMP 97.8; O2SAT 99
[2024-02-12] MEDS ORDERED: SODIUM BICARBONATE 50 MEQ/50 ML VIAL ONE (09:48)
[2024-02-12] MEDS ORDERED: LIDOCAINE/PF 1% 30 ML VIAL ONE (09:48)
[2024-02-12] MEDS ORDERED: HEPARIN SODIUM 1000 UNITS/NS 0 ML ONE (09:48)
[2024-02-12] MEDS ORDERED: IOHEXOL 300 MG/ML 50 ML VIAL ONE (09:49)
[2024-02-12] MEDS ORDERED: FentaNYL CITRATE PF 100 MCG/2 ML VIAL ONE (10:18)
[2024-02-12] MEDS ORDERED: MIDAZOLAM HCL 2 MG/2 ML VIAL ONE (10:18)
[2024-02-12] MEDS: MIDAZOLAM HCL 2 MG/2 ML VIAL IVP ONE (10:57)
[2024-02-12] MEDS: IOHEXOL 300 MG/ML 50 ML VIAL IVP ONE (10:57)
[2024-02-12] MEDS: FentaNYL CITRATE PF 100 MCG/2 ML VIAL IVP ONE (10:58)
[2024-02-12] MEDS: SODIUM CHLORIDE 0.9% 500 ML IV ONE (11:00)
[2024-02-12] MEDS: LIDOCAINE 1% 30 ML/SOD BICARB 8.4% 4 ML SQ ONE (11:05)
[2024-02-12 12:44] VITALS: BP 108/70; PULSE 134; RESP 19; TEMP 99.1; O2SAT 99
[2024-02-12 15:22] VITALS: BP 131/98; PULSE 106; RESP 18; TEMP 98.2; O2SAT 96
[2024-02-12 17:11] LABS: GLUCOMETER DEV NAME(LOC) 6N.2B; GLUCOSE,POINT OF CARE 213 MG/DL (70-110)
[2024-02-12 18:46] LABS: BASOPHILS % (AUTO) 0.9 % (0.0-2.0); EOSINOPHILS % (AUTO) 1.4 % (1.0-6.0); HEMATOCRIT 26.4 % (36-46); HEMOGLOBIN 8.5 g/dL (12.0-16.0); LYMPHOCYTES # (AUTO) 1.6 K/uL (1.0-4.8); LYMPHOCYTES % (AUTO) 34.8 % (22.0-44.0); MEAN CORPUSCULAR HEMOGLOBIN 30.4 pg (26.0-34.0); MEAN CORPUSCULAR HGB CONC 32.1 G/dL (31.0-37.0); MEAN CORPUSCULAR VOLUME 95 fL (80-100); MONOCYTES # (AUTO) 0.4 K/uL (0.1-1.0); NEUTROPHILS # (AUTO) 2.6 K/uL (1.8-7.7); NEUTROPHILS % (AUTO) 54.9 % (40.0-70.0); PLATELET COUNT (AUTO) 536 K/uL (150-450); RED BLOOD CELL COUNT(AUTO) 2.79 MIL/uL (4.00-5.20); RED CELL DISTRIBUTION WIDTH 18.7 % (11.5-14.5); WHITE BLOOD COUNT (AUTO) 4.7 K/uL (4.5-11.0)
[2024-02-12 18:56] LABS: ANION GAP 9 mmol/L (8-16); CALCIUM, TOTAL 8.9 mg/dL (8.8-10.5); CARBON DIOXIDE 28 mmol/L (22-29); CHLORIDE 105 mmol/L (98-107); CREATININE 0.84 mg/dL (0.60-1.30); GLOMERULAR FILTR. RATE CALC > 60 mL/min (>60); GLUCOSE,RANDOM 158 mg/dL (70-110); POTASSIUM 3.8 mmol/L (3.5-5.1); SODIUM SERUM 142 mmol/L (136-145); UREA NITROGEN, BLOOD 11 mg/dL (7-18)
[2024-02-12 19:01] LABS: ALANINE AMINOTRANSFERASE 65 U/L (12-78); ALBUMIN 1.9 g/dL (3.4-5.0); ALKALINE PHOSPHATASE 94 U/L (46-116); ASPARTATE AMINOTRANSFERASE 44 U/L (15-37); BILIRUBIN,TOTAL 0.2 mg/dL (0.1-1.0); TOTAL PROTEIN, SERUM 6.3 g/dL (6.4-8.2)
[2024-02-12 20:40] VITALS: BP 147/68; PULSE 105; RESP 20; TEMP 98.2; O2SAT 92
[2024-02-12] MEDS: INSULIN GLARGINE,HUM.REC.ANLOG 100 UNITS/ML SQ SCH (20:52)
[2024-02-12 21:56] LABS: GLUCOMETER DEV NAME(LOC) 4E.2; GLUCOSE,POINT OF CARE 211 MG/DL (70-110)
[2024-02-12 21:56] LABS: GLUCOMETER DEV NAME(LOC) 4E.2; GLUCOSE,POINT OF CARE 138 MG/DL (70-110)
[2024-02-13 04:28] VITALS: BP 136/68; PULSE 108; RESP 20; TEMP 98.8; O2SAT 96
[2024-02-13 05:21] LABS: GLUCOMETER DEV NAME(LOC) 4E.2; GLUCOSE,POINT OF CARE 167 MG/DL (70-110)
[2024-02-13 09:52] VITALS: BP 157/78; PULSE 113; RESP 20; TEMP 98.2; O2SAT 96
[2024-02-13 10:01] LABS: GLUCOMETER DEV NAME(LOC) 6N.2B; GLUCOSE,POINT OF CARE 237 MG/DL (70-110)
[2024-02-13 11:56] LABS: GLUCOMETER DEV NAME(LOC) 6N.2B; GLUCOSE,POINT OF CARE 249 MG/DL (70-110)
[2024-02-13] MEDS ORDERED: AMPI3VIA20 IV (12:11)
[2024-02-13] MEDS ORDERED: HEPA500018 SQ (12:12)
[2024-02-13] MEDS ORDERED: DOCU50LI40 PEG (12:12)
[2024-02-13] MEDS ORDERED: INSLAN SQ (12:13)
[2024-02-13] MEDS ORDERED: INSU100V SQ (12:14)
== END 2024-02-13 14:42 | DRG 870 ==
LOC: EMS 14:14 → EDH 16:38 → ICU 20:05 → 5S 02-02 07:55 → 4E 02-06 15:44
PROVIDERS: ADMIT Internal Medicine; ATTEND Internal Medicine
PROC: 5A1955Z Respiratory Ventilation, Greater than 96 Consecutive Hours (ICD-10-PCS; principal; 2024-01-24)
PROC: 0BH17EZ Insertion of Endotracheal Airway into Trachea, Via Natural or Artificial Opening (ICD-10-PCS; 2024-01-24)
PROC: 0W9930Z Drainage of Right Pleural Cavity with Drainage Device, Percutaneous Approach (ICD-10-PCS; 2024-01-28)
PROC: 0D20XUZ Change Feeding Device in Upper Intestinal Tract, External Approach (ICD-10-PCS; 2024-02-12)
PROC: 0WP933Z Removal of Infusion Device from Right Pleural Cavity, Percutaneous Approach (ICD-10-PCS; 2024-02-12)
PROC: 0W9930Z Drainage of Right Pleural Cavity with Drainage Device, Percutaneous Approach (ICD-10-PCS; 2024-02-12)
DX: A41.1 Sepsis due to other specified staphylococcus (principal); R65.21 Severe sepsis with septic shock; J96.01 Acute respiratory failure with hypoxia; J15.69 Pneumonia due to other Gram-negative bacteria; J98.11 Atelectasis; N39.0 Urinary tract infection, site not specified; E87.1 Hypo-osmolality and hyponatremia; J90 Pleural effusion, not elsewhere classified; K94.23 Gastrostomy malfunction; Z20.822 Contact with and (suspected) exposure to COVID-19; I11.0 Hypertensive heart disease with heart failure; I50.9 Heart failure, unspecified; R13.10 Dysphagia, unspecified; R62.7 Adult failure to thrive; E11.9 Type 2 diabetes mellitus without complications; D63.8 Anemia in other chronic diseases classified elsewhere; D75.839 Thrombocytosis, unspecified; F03.90 Unspecified dementia, unspecified severity, without behavioral disturbance, psychotic disturbance, mood disturbance, and anxiety; R03.1 Nonspecific low blood-pressure reading; B95.7 Other staphylococcus as the cause of diseases classified elsewhere; F17.210 Nicotine dependence, cigarettes, uncomplicated; I07.1 Rheumatic tricuspid insufficiency; I35.1 Nonrheumatic aortic (valve) insufficiency; Z86.73 Personal history of transient ischemic attack (TIA), and cerebral infarction without residual deficits; Z68.25 Body mass index [BMI] 25.0-25.9, adult
CPT/HCPCS: 36245; 36600; 49450; 51702; 71045; 71250; 74018; 75989; 76000; 80048; 80053; 80202; 81001; 81002; 82040; 82805; 82945; 82962; 83605; 83615; 83735; 83880; 84100; 84132; 84145; 84157; 84484; 85025; 85610; 87040; 87070; 87075; 87077; 87081; 87086; 87205; 87481; 87804; 88112; 88305; 89051; 93005; 93306; 94002; 94003; 99241; 99285; C9113; G0378; J0295; J1644; J1815; J2001; J2250; J2405; J2543; J2704; J3010; J3480; J3490; J7040; J7050; Q9967; 36415-L1; 36415-TC; J2471; Z7500

== ENCOUNTER 2024-03-01 11:01 | Emergency (ER) | payer MEDICARE, OTHER ==
[~2024-03-01] VITALS: Ht 165.1 cm; Wt 68.4 kg
[~2024-03-01 11:01] MED LIST changes: -AMLO-257 PO; +AMPI3VIA20 IV; -ASPI-1450 PO; -ATEN-73 PO; -CALC-724 PO; -CHOL100018 PO; +DOCU50LI40 PEG; -FISH1CAP49 PO; +HEPA500018 SQ; -HYDR25TA84 PO; +INSLAN SQ; +INSU100V SQ; -LOSA-381 PO; -METF-444 PO; -SIMV-260 PO
[2024-03-01 11:11] VITALS: TEMP 98.4
[2024-03-01] MEDS ORDERED: HYDR25TA84 GT (11:27)
[2024-03-01] MEDS ORDERED: IPRA3AMP24 IH (11:27)
[2024-03-01] MEDS ORDERED: LEVE100S7 PO (11:27)
[2024-03-01] MEDS ORDERED: LOSA-381 GT (11:27)
[2024-03-01 12:15] VITALS: BP 113/57; PULSE 88; RESP 16; O2SAT 100
[2024-03-01] MEDS ORDERED: AMOX600S42 GT (13:24)
[2024-03-01] MEDS: CefTRIAXone SODIUM 1 GM/VIAL IM ONE (13:37)
[2024-03-01] MEDS: LIDOCAINE/PF 1% 2 ML VIAL IM ONE (13:37)
== END 2024-03-01 14:14 ==
LOC: EMS 11:01
DX: Z45.2 Encounter for adjustment and management of vascular access device (principal); F03.90 Unspecified dementia, unspecified severity, without behavioral disturbance, psychotic disturbance, mood disturbance, and anxiety; E11.9 Type 2 diabetes mellitus without complications; E78.00 Pure hypercholesterolemia, unspecified; I11.0 Hypertensive heart disease with heart failure; I50.9 Heart failure, unspecified
CPT/HCPCS: 99283; 71045; 96372; J0696; J3490

== ENCOUNTER 2024-06-15 21:16 | Inpatient (IN) | payer MEDICARE, OTHER ==
[~2024-06-15] VITALS: Ht 165.1 cm; Wt 55.0 kg
[~2024-06-15 21:16] MED LIST changes: -AMPI3VIA20 IV; +BISA10SU11 PR; +HYDR25TA84 GT; +LACT10SO10 GT; +LEVE100S7 PO; +LEVO750P7 IV; +LOSA-381 GT; +METO10L GT; +METR500 GT; +MINE133E26 PR; +SENN-376 PO; +ZOLP-280 PO
[2024-06-15 22:41] LABS: BASOPHILS % (AUTO) 0.5 % (0.0-2.0); MONOCYTES # (AUTO) 0.6 K/uL (0.1-1.0)
[2024-06-15 22:45] LABS: EOSINOPHILS % (AUTO) 0.4 % (1.0-6.0); HEMATOCRIT 26.9 % (36-46); HEMOGLOBIN 8.6 g/dL (12.0-16.0); LYMPHOCYTES # (AUTO) 2.7 K/uL (1.0-4.8); LYMPHOCYTES % (AUTO) 13.6 % (22.0-44.0); MEAN CORPUSCULAR HEMOGLOBIN 28.9 pg (26.0-34.0); MEAN CORPUSCULAR HGB CONC 31.8 G/dL (31.0-37.0); MEAN CORPUSCULAR VOLUME 91 fL (80-100); NEUTROPHILS # (AUTO) 16.4 K/uL (1.8-7.7); NEUTROPHILS % (AUTO) 82.5 % (40.0-70.0); PLATELET COUNT (AUTO) 445 K/uL (150-450); RED BLOOD CELL COUNT(AUTO) 2.97 MIL/uL (4.00-5.20); RED CELL DISTRIBUTION WIDTH 28.4 % (11.5-14.5); WHITE BLOOD COUNT (AUTO) 19.9 K/uL (4.5-11.0)
[2024-06-15 22:47] LABS: ANION GAP 9 mmol/L (8-16); CALCIUM, TOTAL 9.5 mg/dL (8.8-10.5); CARBON DIOXIDE 28 mmol/L (22-29); CHLORIDE 96 mmol/L (98-107); CREATININE 1.73 mg/dL (0.60-1.30); GLOMERULAR FILTR. RATE CALC 28 mL/min (>60); GLUCOSE,RANDOM 215 mg/dL (70-110); POTASSIUM 4.4 mmol/L (3.5-5.1); SODIUM SERUM 133 mmol/L (136-145); UREA NITROGEN, BLOOD 60 mg/dL (7-18)
[2024-06-15 22:51] LABS: PROTHROMBIN TIME 10.8 SEC (9.4-11.6)
[2024-06-15 22:57] LABS: CREATINE KINASE, TOTAL ONLY 16 U/L (26-192); TROPONIN I-HIGH SENSITIVITY 12 ng/L (<51)
[2024-06-15 22:59] LABS: LACTIC ACID 3.4 mmol/L (0.4-2.0)
[2024-06-15 23:14] LABS: RBC MORPHOLOGY COMMENT ABNORMAL RBC MORPH
[2024-06-16] VITALS (13 sets, daily range): BP systolic 101–128; BP diastolic 55–73; PULSE 104–126; RESP 16–24; TEMP 98.7–99.9; O2SAT 96–100
[2024-06-16] MEDS: PIPERACILLIN/TAZO 3.375 GM/D5W 50 ML IV ONE (00:24)
[2024-06-16] MEDS: VANCOMYCIN 1.25 GM/WATER(PEG) 250 ML IV ONE (00:24)
[2024-06-16] MEDS: SODIUM CHLORIDE 0.9% 1,000 ML IV ONE (00:25)
[2024-06-16 00:30] LABS: ABG BASE EXCESS 3.6 mmol/L (-2.0-3.0); ABG CARBOXYHEMOGLOBIN 0.5 % (0.5-1.5); ABG HCO3 27.7 mmol/L (21.0-28.0); ABG OXYGEN CONTENT 16.2 mL/dL (15.0-23.0); ABG OXYGEN SATURATION 94.9 % (94.0-98.0); ABG OXYHEMOGLOBIN 94.4 % (94.0-98.0); ABG PCO2 36 mmHg (32.0-45.0); ABG PH 7.497 (7.350-7.450); ABG TOTAL HEMOGLOBIN 12.2 G/dL (12.0-16.0); PO2, ARTERIAL BG 74.2 mmHg (83.0-108.0); SOURCE, BLOOD GAS ARTERIAL; TEMPERATURE, FAHRENHEIT, BG 98.3 FAHREN (96.0-98.6)
[2024-06-16 00:31] LABS: ALLEN TEST, BLOOD GAS Positive; O2 DEVICE,BLOOD GAS CANNULA (ROOM AIR); SITE, BLOOD GAS RT RADIAL
[2024-06-16] MEDS ORDERED: DEXTROSE 50%-WATER 25 GM/50 ML SYRINGE IVP PRN (01:30)
[2024-06-16] MEDS ORDERED: BISACODYL 10 MG RECTAL RECTAL SUPPOSITORY PR PRN (01:30)
[2024-06-16] MEDS ORDERED: ACETAMINOPHEN 325 MG TABLET PO PRN (01:30)
[2024-06-16] MEDS ORDERED: MINERAL OIL 133 ML ENEMA PR PRN (01:30)
[2024-06-16] MEDS ORDERED: ONDANSETRON HCL 4 MG/2 ML VIAL IVP PRN (01:30)
[2024-06-16 01:58] LABS: COVID AG,FIA SOURCE NASAL SWAB
[2024-06-16] MEDS ORDERED: VANCOMYCIN 1GM/WATER(PEG/NADA) 200 ML IV PRN (02:00)
[2024-06-16] MEDS: ALBUTEROL SULFATE 2.5 MG/0.5 ML NEB SOLUTION NEB SCH (02:45)
[2024-06-16] MEDS: IPRATROPIUM BROMIDE 0.5 MG/2.5 ML NEB SOLUTION NEB SCH (02:45)
[2024-06-16 02:48] LABS: APPEARANCE,URINE HAZY (CLEAR); BILIRUBIN,URINE NEGATIVE (NEGATIVE); COLOR,URINE LIGHT YELLOW (YELLOW); GLUCOSE, URINE (UA) NEGATIVE (NEGATIVE); KETONES,URINE NEGATIVE (NEGATIVE); LEUKOCYTE ESTERASE ,URINE LARGE (NEGATIVE); NITRATE,URINE NEGATIVE (NEGATIVE); OCCULT BLOOD,URINE MODERATE (NEGATIVE); PH,URINE 7.5 (5.0-8.0); PH,URINE DRUG SCREEN 7.5 (5.0-8.0); PROTEIN,URINE 30-70 mg/dL (NEGATIVE); SPECIFIC GRAVITIY, URINE 1.017 (1.003-1.030); UROBILINOGEN,URINE <=1.0 mg/dL (<=1.0)
[2024-06-16 02:52] LABS: AMPHET/METH SCREEN,URINE NEGATIVE (NEGATIVE); BARBITURATE SCREEN, URINE NEGATIVE (NEGATIVE); BENZODIAZEPINES SCREEN,URINE NEGATIVE (NEGATIVE); CANNABINOID SCREEN,URINE NEGATIVE (NEGATIVE); COCAINE SCREEN,URINE NEGATIVE (NEGATIVE); METHADONE SCREEN, URINE NEGATIVE (NEGATIVE); OPIATE SCREEN,URINE NEGATIVE (NEGATIVE); PHENCYCLIDINE SCREEN,URINE NEGATIVE (NEGATIVE)
[2024-06-16 02:53] LABS: SARS-COV2 (COVID) ANTIGEN,FIA Negative (Negative)
[2024-06-16 02:54] LABS: INFLUENZA TYPE A NEGATIVE FOR TYPE A (NEGATIVE); INFLUENZA TYPE B NEGATIVE FOR TYPE B (NEGATIVE)
[2024-06-16 02:59] LABS: ALCOHOL, URINE DRUG SCREEN NEGATIVE (NEGATIVE)
[2024-06-16 03:12] LABS: BACTERIA,URINE None Seen /HPF (None Seen); SQUAMOUS EPITHELIAL CELL,UR Few /LPF (None Seen); WBC,URINE 26-50 /HPF (0-5)
[2024-06-16] MEDS: HEPARIN SODIUM,PORCINE 5,000 UNITS/ML VIAL SQ SCH (07:05)
[2024-06-16] MEDS: HydrALAZINE HCL 25 MG TABLET GT SCH (08:14)
[2024-06-16] MEDS: LOSARTAN POTASSIUM 25 MG TABLET GT SCH (08:14)
[2024-06-16] MEDS ORDERED: DOCUSATE SODIUM 100 MG CAPSULE PO SCH (09:00)
[2024-06-16] MEDS: LACTULOSE 20 GM/30 ML SOLUTION UDCUP GT SCH (10:52)
[2024-06-16] MEDS: DOCUSATE SODIUM 100 MG/10 ML LIQUID UDCUP GT SCH (10:52)
[2024-06-16] MEDS: LevETIRAcetam 100 MG/ML 5 ML SOLUTION UDCUP GT SCH (10:55)
[2024-06-16] MEDS: SENNOSIDES 8.8 MG/5 ML SYRUP UDCUP GT SCH (10:55)
[2024-06-16] MEDS: METOCLOPRAMIDE HCL 10 MG/10 ML SOLUTION ORAL.SYG GT SCH (10:56)
[2024-06-16] MEDS ORDERED: PIPERACILLIN/TAZO 3.375 GM/D5W 50 ML IV SCH (12:00)
[2024-06-16] MEDS ORDERED: SODIUM CHLORIDE 0.9% 250 ML IV ONE (13:14)
[2024-06-16] MEDS: ACETAMINOPHEN 650 MG/20.3 ML SOLUTION UDCUP GT PRN (16:21)
[2024-06-16] MEDS: PIPERACILLIN SODIUM/TAZOBACTAM 2.25 GM in DEXTROSE 5%-WATER 50 ML IV SCH (16:22)
[2024-06-16 17:45] LABS: GLUCOMETER DEV NAME(LOC) 5N.2C; GLUCOSE,POINT OF CARE 350 MG/DL (70-110)
[2024-06-16] MEDS: INSULIN LISPRO 100 UNITS/ML SQ PRN (18:28)
[2024-06-16 21:01] LABS: GLUCOMETER DEV NAME(LOC) 5N.2C; GLUCOSE,POINT OF CARE 256 MG/DL (70-110)
[2024-06-17] VITALS (14 sets, daily range): BP systolic 106–136; BP diastolic 40–66; PULSE 92–120; RESP 18–20; TEMP 97.7–99.2; O2SAT 94–100
[2024-06-17 06:36] LABS: GLUCOMETER DEV NAME(LOC) 5S.2D; GLUCOSE,POINT OF CARE 306 MG/DL (70-110)
[2024-06-17 06:41] LABS: BASOPHILS % (AUTO) 0.4 % (0.0-2.0); EOSINOPHILS % (AUTO) 1.2 % (1.0-6.0); HEMOGLOBIN 8.5 g/dL (12.0-16.0); LYMPHOCYTES # (AUTO) 1.5 K/uL (1.0-4.8); LYMPHOCYTES % (AUTO) 11.3 % (22.0-44.0); MEAN CORPUSCULAR HEMOGLOBIN 28.8 pg (26.0-34.0); MEAN CORPUSCULAR HGB CONC 31.7 G/dL (31.0-37.0); MEAN CORPUSCULAR VOLUME 91 fL (80-100); MONOCYTES # (AUTO) 0.6 K/uL (0.1-1.0); MONOCYTES % (AUTO) 4.3 % (2.0-9.0); NEUTROPHILS # (AUTO) 11.3 K/uL (1.8-7.7); NEUTROPHILS % (AUTO) 82.8 % (40.0-70.0); PLATELET COUNT (AUTO) 403 K/uL (150-450); RED BLOOD CELL COUNT(AUTO) 2.96 MIL/uL (4.00-5.20); WHITE BLOOD COUNT (AUTO) 13.6 K/uL (4.5-11.0)
[2024-06-17 07:00] LABS: CALCIUM, TOTAL 9.4 mg/dL (8.8-10.5); CREATININE 1.37 mg/dL (0.60-1.30); MAGNESIUM 2.4 mg/dL (1.80-2.40); POTASSIUM 3.8 mmol/L (3.5-5.1)
[2024-06-17 08:13] LABS: RBC MORPHOLOGY COMMENT ABNORMAL RBC MORPH
[2024-06-17] MEDS: VANCOMYCIN 500 MG/WATER(PEG) 100 ML IV SCH (08:52)
[2024-06-17 12:07] LABS: GLUCOMETER DEV NAME(LOC) 5N.2C; GLUCOSE,POINT OF CARE 290 MG/DL (70-110)
[2024-06-18] VITALS (7 sets, daily range): BP systolic 123–139; BP diastolic 46–74; PULSE 85–112; RESP 16–19; TEMP 97.6–98.2; O2SAT 95–100
[2024-06-18 05:51] LABS: GLUCOMETER DEV NAME(LOC) 5S.2D; GLUCOSE,POINT OF CARE 291 MG/DL (70-110)
[2024-06-18] MEDS ORDERED: SODIUM CHLORIDE 0.9% 500 ML IV ONE (05:59)
[2024-06-18 07:07] LABS: CALCIUM, TOTAL 9.3 mg/dL (8.8-10.5); CREATININE 1.26 mg/dL (0.60-1.30); POTASSIUM 3.2 mmol/L (3.5-5.1)
[2024-06-18 12:06] LABS: GLUCOMETER DEV NAME(LOC) 5S.2D; GLUCOSE,POINT OF CARE 238 MG/DL (70-110)
[2024-06-18 12:06] LABS: GLUCOMETER DEV NAME(LOC) 5S.2D; GLUCOSE,POINT OF CARE 378 MG/DL (70-110)
[2024-06-18 12:06] LABS: GLUCOMETER DEV NAME(LOC) 5S.2D; GLUCOSE,POINT OF CARE 328 MG/DL (70-110)
[2024-06-18] MEDS ORDERED: LACT10SO85 GT (14:07)
[2024-06-18] MEDS ORDERED: FAMO40TA7 GT (14:11)
[2024-06-18] MEDS ORDERED: ATEN-72 GT (14:11)
[2024-06-18] MEDS ORDERED: ATOR20TA65 GT (14:11)
[2024-06-18] MEDS ORDERED: METH-386 GT (14:11)
[2024-06-18] MEDS ORDERED: METF-1211 GT (14:11)
[2024-06-18 14:56] LABS: BASOPHILS % (AUTO) 0.5 % (0.0-2.0); EOSINOPHILS % (AUTO) 2.3 % (1.0-6.0); HEMATOCRIT 24.5 % (36-46); HEMOGLOBIN 7.8 g/dL (12.0-16.0); LYMPHOCYTES # (AUTO) 1.8 K/uL (1.0-4.8); LYMPHOCYTES % (AUTO) 22.2 % (22.0-44.0); MEAN CORPUSCULAR HGB CONC 31.9 G/dL (31.0-37.0); MEAN CORPUSCULAR VOLUME 91 fL (80-100); MONOCYTES # (AUTO) 0.5 K/uL (0.1-1.0); MONOCYTES % (AUTO) 6.4 % (2.0-9.0); NEUTROPHILS # (AUTO) 5.6 K/uL (1.8-7.7); NEUTROPHILS % (AUTO) 68.6 % (40.0-70.0); PLATELET COUNT (AUTO) 445 K/uL (150-450); RED CELL DISTRIBUTION WIDTH 28.2 % (11.5-14.5); WHITE BLOOD COUNT (AUTO) 8.2 K/uL (4.5-11.0)
[2024-06-18 15:02] LABS: RBC MORPHOLOGY COMMENT ABNORMAL RBC MORPH
[2024-06-18 15:05] LABS: CALCIUM, TOTAL 9.6 mg/dL (8.8-10.5); CREATININE 1.28 mg/dL (0.60-1.30); POTASSIUM 3.1 mmol/L (3.5-5.1)
[2024-06-18 15:10] LABS: ALBUMIN 1.5 g/dL (3.4-5.0); BILIRUBIN,TOTAL 0.3 mg/dL (0.1-1.0)
[2024-06-18] MEDS: POTASSIUM CHLORIDE 10% 40 MEQ/30 ML LIQUID UDCUP NG ONE (16:33)
[2024-06-18 17:36] LABS: GLUCOMETER DEV NAME(LOC) 5N.2C; GLUCOSE,POINT OF CARE 303 MG/DL (70-110)
[2024-06-18] MEDS: INSULIN GLARGINE,HUM.REC.ANLOG 100 UNITS/ML SQ SCH (21:45)
[2024-06-18 22:15] LABS: GLUCOMETER DEV NAME(LOC) 5S.2D; GLUCOSE,POINT OF CARE 294 MG/DL (70-110)
[2024-06-19] VITALS (10 sets, daily range): BP systolic 128–149; BP diastolic 63–84; PULSE 76–117; RESP 16–18; TEMP 98–99.1; O2SAT 94–100
[2024-06-19 06:50] LABS: GLUCOMETER DEV NAME(LOC) 5S.2D; GLUCOSE,POINT OF CARE 325 MG/DL (70-110)
[2024-06-19 06:54] LABS: CALCIUM, TOTAL 9.7 mg/dL (8.8-10.5); CREATININE 1.25 mg/dL (0.60-1.30); POTASSIUM 4.1 mmol/L (3.5-5.1)
[2024-06-19] MEDS: VANCOMYCIN 750 MG/WATER(PEG) 150 ML IV SCH (09:10)
[2024-06-19] MEDS: METOPROLOL TARTRATE 25 MG TABLET PEG ONE (16:29)
[2024-06-19] MEDS: METOPROLOL TARTRATE 25 MG TABLET PEG SCH (20:36)
[2024-06-19 21:06] LABS: GLUCOMETER DEV NAME(LOC) 5N.2C; GLUCOSE,POINT OF CARE 364 MG/DL (70-110)
[2024-06-19 21:15] LABS: GLUCOMETER DEV NAME(LOC) 5S.2D; GLUCOSE,POINT OF CARE 278 MG/DL (70-110)
[2024-06-19 21:30] LABS: GLUCOMETER DEV NAME(LOC) 5N.2C; GLUCOSE,POINT OF CARE 232 MG/DL (70-110)
[2024-06-20] VITALS (10 sets, daily range): BP systolic 137–152; BP diastolic 69–100; PULSE 78–116; RESP 16–19; TEMP 97.9–98.9; O2SAT 95–99
[2024-06-20 06:06] LABS: GLUCOMETER DEV NAME(LOC) 5N.2C; GLUCOSE,POINT OF CARE 323 MG/DL (70-110)
[2024-06-20 07:11] LABS: CALCIUM, TOTAL 9.9 mg/dL (8.8-10.5); CREATININE 1.23 mg/dL (0.60-1.30); POTASSIUM 4.2 mmol/L (3.5-5.1)
[2024-06-20 11:45] LABS: GLUCOMETER DEV NAME(LOC) 5S.2D; GLUCOSE,POINT OF CARE 318 MG/DL (70-110)
[2024-06-20] MEDS: DEXTROSE 5%-WATER 1,000 ML IV SCH (18:08)
[2024-06-20 20:05] LABS: GLUCOMETER DEV NAME(LOC) 5S.2D; GLUCOSE,POINT OF CARE 364 MG/DL (70-110)
[2024-06-20 21:21] LABS: GLUCOMETER DEV NAME(LOC) 5S.2D; GLUCOSE,POINT OF CARE 346 MG/DL (70-110)
[2024-06-21] VITALS (10 sets, daily range): BP systolic 125–139; BP diastolic 56–91; PULSE 72–111; RESP 16–20; TEMP 97.5–98.6; O2SAT 95–100
[2024-06-21 07:50] LABS: CALCIUM, TOTAL 9.6 mg/dL (8.8-10.5); CREATININE 1.1 mg/dL (0.60-1.30); POTASSIUM 3.9 mmol/L (3.5-5.1)
[2024-06-21 07:56] LABS: GLUCOMETER DEV NAME(LOC) 5S.2D; GLUCOSE,POINT OF CARE 241 MG/DL (70-110)
[2024-06-21 09:09] LABS: BASOPHILS % (AUTO) 1.4 % (0.0-2.0); EOSINOPHILS % (AUTO) 4.5 % (1.0-6.0); HEMATOCRIT 28.2 % (36-46); HEMOGLOBIN 8.7 g/dL (12.0-16.0); LYMPHOCYTES # (AUTO) 1.8 K/uL (1.0-4.8); LYMPHOCYTES % (AUTO) 28.9 % (22.0-44.0); MEAN CORPUSCULAR HEMOGLOBIN 28.9 pg (26.0-34.0); MEAN CORPUSCULAR HGB CONC 30.9 G/dL (31.0-37.0); MEAN CORPUSCULAR VOLUME 94 fL (80-100); MONOCYTES # (AUTO) 0.5 K/uL (0.1-1.0); NEUTROPHILS # (AUTO) 3.6 K/uL (1.8-7.7); NEUTROPHILS % (AUTO) 57.2 % (40.0-70.0); PLATELET COUNT (AUTO) 443 K/uL (150-450); RED BLOOD CELL COUNT(AUTO) 3.02 MIL/uL (4.00-5.20); RED CELL DISTRIBUTION WIDTH 28.8 % (11.5-14.5); WHITE BLOOD COUNT (AUTO) 6.3 K/uL (4.5-11.0)
[2024-06-21 09:17] LABS: RBC MORPHOLOGY COMMENT ABNORMAL RBC MORPH
[2024-06-21 19:28] LABS: CALCIUM, TOTAL 9.2 mg/dL (8.8-10.5); CREATININE 1.17 mg/dL (0.60-1.30); POTASSIUM 3.8 mmol/L (3.5-5.1)
[2024-06-21 20:25] LABS: GLUCOMETER DEV NAME(LOC) 5S.2D; GLUCOSE,POINT OF CARE 288 MG/DL (70-110)
[2024-06-21 20:25] LABS: GLUCOMETER DEV NAME(LOC) 5S.2D; GLUCOSE,POINT OF CARE 358 MG/DL (70-110)
[2024-06-21] MEDS ORDERED: DEXTROSE 50%-WATER 25 GM/50 ML SYRINGE IVP PRN (20:45)
[2024-06-21] MEDS: INSULIN GLARGINE,HUM.REC.ANLOG 100 UNITS/ML SQ SCH (21:10)
[2024-06-21] MEDS: INSULIN LISPRO 100 UNITS/ML SQ PRN (21:38)
[2024-06-21 22:00] LABS: GLUCOMETER DEV NAME(LOC) 5S.2D; GLUCOSE,POINT OF CARE 348 MG/DL (70-110)
[2024-06-22] VITALS (10 sets, daily range): BP systolic 118–134; BP diastolic 57–71; PULSE 92–110; RESP 16–22; TEMP 98.2–99.4; O2SAT 94–100
[2024-06-22 06:50] LABS: EOSINOPHILS % (AUTO) 5.2 % (1.0-6.0); HEMATOCRIT 24.5 % (36-46); HEMOGLOBIN 7.9 g/dL (12.0-16.0); LYMPHOCYTES # (AUTO) 2.1 K/uL (1.0-4.8); LYMPHOCYTES % (AUTO) 27.1 % (22.0-44.0); MEAN CORPUSCULAR HEMOGLOBIN 29.9 pg (26.0-34.0); MEAN CORPUSCULAR HGB CONC 32.1 G/dL (31.0-37.0); MEAN CORPUSCULAR VOLUME 93 fL (80-100); MONOCYTES # (AUTO) 0.4 K/uL (0.1-1.0); MONOCYTES % (AUTO) 5.5 % (2.0-9.0); NEUTROPHILS # (AUTO) 4.7 K/uL (1.8-7.7); NEUTROPHILS % (AUTO) 61.2 % (40.0-70.0); PLATELET COUNT (AUTO) 421 K/uL (150-450); RED BLOOD CELL COUNT(AUTO) 2.64 MIL/uL (4.00-5.20); RED CELL DISTRIBUTION WIDTH 28.2 % (11.5-14.5); WHITE BLOOD COUNT (AUTO) 7.7 K/uL (4.5-11.0)
[2024-06-22 07:02] LABS: RBC MORPHOLOGY COMMENT ABNORMAL RBC MORPH
[2024-06-22 07:21] LABS: GLUCOMETER DEV NAME(LOC) 5N.2C; GLUCOSE,POINT OF CARE 319 MG/DL (70-110)
[2024-06-22 07:30] LABS: ALBUMIN 1.6 g/dL (3.4-5.0); BILIRUBIN,TOTAL 0.3 mg/dL (0.1-1.0); CALCIUM, TOTAL 8.9 mg/dL (8.8-10.5); CREATININE 1.12 mg/dL (0.60-1.30); POTASSIUM 3.8 mmol/L (3.5-5.1); TOTAL PROTEIN, SERUM 7.4 g/dL (6.4-8.2); VANCOMYCIN,RANDOM 22.2 mcg/mL (25.0-50.0)
[2024-06-22] MEDS: VANCOMYCIN 500 MG/WATER(PEG) 100 ML IV SCH (09:13)
[2024-06-22 13:40] LABS: GLUCOMETER DEV NAME(LOC) 5N.2C; GLUCOSE,POINT OF CARE 277 MG/DL (70-110)
== END 2024-06-22 17:55 | DRG 871 ==
LOC: EMS 21:20 → EDH 06-16 01:23 → 5N 06-16 09:10
PROVIDERS: ADMIT Internal Medicine; ATTEND Internal Medicine
DX: A41.9 Sepsis, unspecified organism (principal); G93.41 Metabolic encephalopathy; J96.21 Acute and chronic respiratory failure with hypoxia; R53.2 Functional quadriplegia; R65.21 Severe sepsis with septic shock; J15.69 Pneumonia due to other Gram-negative bacteria; J15.212 Pneumonia due to Methicillin resistant Staphylococcus aureus; E87.0 Hyperosmolality and hypernatremia; E87.20 Acidosis, unspecified; Z20.822 Contact with and (suspected) exposure to COVID-19; N28.9 Disorder of kidney and ureter, unspecified; E11.65 Type 2 diabetes mellitus with hyperglycemia; E78.00 Pure hypercholesterolemia, unspecified; D64.9 Anemia, unspecified; F01.50 Vascular dementia, unspecified severity, without behavioral disturbance, psychotic disturbance, mood disturbance, and anxiety; I11.0 Hypertensive heart disease with heart failure; I50.9 Heart failure, unspecified; I25.10 Atherosclerotic heart disease of native coronary artery without angina pectoris; Z86.73 Personal history of transient ischemic attack (TIA), and cerebral infarction without residual deficits; Z74.01 Bed confinement status; Z87.440 Personal history of urinary (tract) infections
CPT/HCPCS: 70450; 71045; 74018; 80048; 80053; 80202; 80307; 81001; 82550; 82805; 82962; 83605; 83735; 84132; 84484; 85025; 85610; 85730; 87040; 87077; 87086; 87186; 87804; 93005; 94640; 99285; J1644; J1815; J2543; J7030; J7040; J7050; J7060; 36415-L1; 36415-TC; J7613

== ENCOUNTER 2024-09-26 11:02 | Inpatient (IN) | payer MEDICARE, OTHER ==
[~2024-09-26] VITALS: Ht 162.6 cm; Wt 63.0 kg
[~2024-09-26 11:02] MED LIST changes: +ATEN-72 GT; +ATOR20TA65 GT; +FAMO40TA7 GT; -LACT10SO10 GT; +LACT10SO85 GT; +LEVE100S7 GT; -LEVE100S7 PO; -LEVO750P7 IV; +METF-1211 GT; +METH-386 GT; -METR500 GT
[2024-09-26 13:00] LABS: PLATELET COUNT (AUTO) 306 K/uL (150-450); RED BLOOD CELL COUNT(AUTO) 3.04 MIL/uL (4.00-5.20); RED CELL DISTRIBUTION WIDTH 14.2 % (11.5-14.5); WHITE BLOOD COUNT (AUTO) 5.6 K/uL (4.5-11.0)
[2024-09-26 13:08] LABS: CREATININE 0.98 mg/dL (0.60-1.30); GLUCOSE,RANDOM 244.0 mg/dL (70-110); SODIUM SERUM 136.0 mmol/L (136-145); UREA NITROGEN, BLOOD 17.0 mg/dL (7-18)
[2024-09-26 13:09] LABS: CALCIUM, TOTAL 9.5 mg/dL (8.8-10.5); GLOMERULAR FILTR. RATE CALC 54.0 mL/min (>60)
[2024-09-26] MEDS ORDERED: BISACODYL 10 MG RECTAL RECTAL SUPPOSITORY PR PRN (14:30)
[2024-09-26] MEDS ORDERED: ZOLPIDEM TARTRATE 5 MG TABLET PO PRN (14:30)
[2024-09-26] MEDS ORDERED: ONDANSETRON HCL 4 MG/2 ML VIAL IVP PRN (14:30)
[2024-09-26] MEDS ORDERED: MORPHINE SULFATE 2 MG/ML SYRINGE IVP PRN (14:30)
[2024-09-26] MEDS ORDERED: LABETALOL HCL 5 MG/ML 20 ML VIAL IVP PRN (14:30)
[2024-09-26] MEDS ORDERED: HYDROCODONE/ACETAMINOPHEN 5-325 MG TABLET PO PRN (14:30)
[2024-09-26] MEDS ORDERED: MAGNESIUM HYDROXIDE SUSPENSION 30 ML UDCUP PO PRN (14:30)
[2024-09-26] MEDS ORDERED: ACETAMINOPHEN 325 MG TABLET PO PRN (14:30)
[2024-09-26] MEDS: HEPARIN SODIUM,PORCINE 5,000 UNITS/ML VIAL SQ SCH (15:01)
[2024-09-26] MEDS: DEXTROSE 5%-0.45% SODIUM CHL 1,000 ML IV ONE (15:01)
[2024-09-26] MEDS: LevETIRAcetam 1,000 MG in DEXTROSE 5%-WATER 100 ML IV SCH (15:02)
[2024-09-26 19:55] VITALS: BP 127/55; PULSE 82; RESP 18; TEMP 98.4; O2SAT 100
[2024-09-26] MEDS: DOCUSATE SODIUM 100 MG CAPSULE PO SCH (21:00)
[2024-09-27 03:56] VITALS: BP 116/61; PULSE 82; RESP 18; TEMP 98.4; O2SAT 100
[2024-09-27 07:04] LABS: CALCIUM, TOTAL 9.3 mg/dL (8.8-10.5); CREATININE 0.91 mg/dL (0.60-1.30); GLOMERULAR FILTR. RATE CALC 59.0 mL/min (>60); GLUCOSE,RANDOM 289.0 mg/dL (70-110); SODIUM SERUM 138.0 mmol/L (136-145); UREA NITROGEN, BLOOD 12.0 mg/dL (7-18)
[2024-09-27 07:06] LABS: PLATELET COUNT (AUTO) 345 K/uL (150-450); RED BLOOD CELL COUNT(AUTO) 2.85 MIL/uL (4.00-5.20); RED CELL DISTRIBUTION WIDTH 13.8 % (11.5-14.5); WHITE BLOOD COUNT (AUTO) 4.6 K/uL (4.5-11.0)
[2024-09-27 08:35] VITALS: BP 124/68; PULSE 81; RESP 18; TEMP 97.9; O2SAT 100
[2024-09-27] MEDS: PANTOPRAZOLE SODIUM 40 MG DR TABLET PO SCH (08:54)
[2024-09-27] MEDS ORDERED: DEXTROSE 50%-WATER 25 GM/50 ML SYRINGE IVP PRN (11:00)
[2024-09-27] MEDS: DEXTROSE 5%-0.45% SODIUM CHL 1,000 ML IV SCH (11:47)
[2024-09-27 11:48] LABS: APPEARANCE,URINE HAZY (CLEAR); GLUCOSE, URINE (UA) 300-500 mg/dL (NEGATIVE); LEUKOCYTE ESTERASE ,URINE LARGE (NEGATIVE); NITRATE,URINE NEGATIVE (NEGATIVE); OCCULT BLOOD,URINE NEGATIVE (NEGATIVE); SPECIFIC GRAVITIY, URINE 1.013 (1.003-1.030)
[2024-09-27 11:53] LABS: YEAST,URINE Moderate /HPF (None Seen)
[2024-09-27] MEDS: CefTRIAXone 1 GM/DEXTROSE 50 ML IV SCH (14:26)
[2024-09-27 16:02] VITALS: BP 120/57; PULSE 84; RESP 18; TEMP 97.9; O2SAT 100
[2024-09-27 17:41] LABS: GLUCOMETER DEV NAME(LOC) 6N.1B; GLUCOSE,POINT OF CARE 241 MG/DL (70-110)
[2024-09-27 19:28] VITALS: BP 140/76; PULSE 87; RESP 18; TEMP 97.9; O2SAT 100
[2024-09-27 19:36] LABS: GLUCOMETER DEV NAME(LOC) 4E.2; GLUCOSE,POINT OF CARE 275 MG/DL (70-110)
[2024-09-27] MEDS: INSULIN LISPRO 100 UNITS/ML SQ PRN (20:30)
[2024-09-28 00:36] LABS: GLUCOMETER DEV NAME(LOC) 4E.2; GLUCOSE,POINT OF CARE 299 MG/DL (70-110)
[2024-09-28] MEDS: ETHYL ALCOHOL 62% ANTISEPTIC NASAL SANITIZER 0.6 ML AMPUL NASAL SCH (01:05)
[2024-09-28 04:09] VITALS: BP 148/73; PULSE 92; RESP 18; TEMP 99.3; O2SAT 100
[2024-09-28 06:49] LABS: PLATELET COUNT (AUTO) 344 K/uL (150-450); RED BLOOD CELL COUNT(AUTO) 2.93 MIL/uL (4.00-5.20); RED CELL DISTRIBUTION WIDTH 13.9 % (11.5-14.5); WHITE BLOOD COUNT (AUTO) 4.4 K/uL (4.5-11.0)
[2024-09-28 07:04] LABS: CALCIUM, TOTAL 9.6 mg/dL (8.8-10.5); CREATININE 0.94 mg/dL (0.60-1.30); GLOMERULAR FILTR. RATE CALC 57.0 mL/min (>60); GLUCOSE,RANDOM 301.0 mg/dL (70-110); SODIUM SERUM 137.0 mmol/L (136-145); UREA NITROGEN, BLOOD 9.0 mg/dL (7-18)
[2024-09-28 07:44] VITALS: BP 149/75; PULSE 89; RESP 18; TEMP 99.5; O2SAT 100
[2024-09-28 15:27] VITALS: BP 109/59; PULSE 67; RESP 18; TEMP 98.2; O2SAT 100
[2024-09-28 18:26] LABS: GLUCOMETER DEV NAME(LOC) 4E.2; GLUCOSE,POINT OF CARE 234 MG/DL (70-110)
[2024-09-28 18:26] LABS: GLUCOMETER DEV NAME(LOC) 4E.2; GLUCOSE,POINT OF CARE 253 MG/DL (70-110)
[2024-09-28 18:26] LABS: GLUCOMETER DEV NAME(LOC) 4E.2; GLUCOSE,POINT OF CARE 242 MG/DL (70-110)
[2024-09-28 20:46] LABS: GLUCOMETER DEV NAME(LOC) 4E.2; GLUCOSE,POINT OF CARE 283 MG/DL (70-110)
[2024-09-29 05:11] VITALS: BP 137/64; PULSE 82; RESP 18; TEMP 98.2; O2SAT 97
[2024-09-29 07:11] LABS: PLATELET COUNT (AUTO) 325 K/uL (150-450); RED BLOOD CELL COUNT(AUTO) 2.89 MIL/uL (4.00-5.20); RED CELL DISTRIBUTION WIDTH 13.7 % (11.5-14.5); WHITE BLOOD COUNT (AUTO) 4.1 K/uL (4.5-11.0)
[2024-09-29 07:22] LABS: CALCIUM, TOTAL 9.2 mg/dL (8.8-10.5); CREATININE 0.94 mg/dL (0.60-1.30); GLOMERULAR FILTR. RATE CALC 57.0 mL/min (>60); GLUCOSE,RANDOM 286.0 mg/dL (70-110); SODIUM SERUM 135.0 mmol/L (136-145); UREA NITROGEN, BLOOD 6.0 mg/dL (7-18)
[2024-09-29 08:59] VITALS: BP 156/70; PULSE 95; RESP 19; TEMP 98.4; O2SAT 100
[2024-09-29] MEDS ORDERED: SODIUM CHLORIDE 0.9% 250 ML IV ONE (15:32)
[2024-09-29 20:00] VITALS: BP 118/55; PULSE 76; RESP 18; TEMP 98.6; O2SAT 99
[2024-09-30 04:12] VITALS: BP 138/61; PULSE 87; RESP 19; TEMP 98.4; O2SAT 100
[2024-09-30] MEDS ORDERED: SODIUM BICARBONATE 50 MEQ/50 ML VIAL ONE (07:51)
[2024-09-30] MEDS ORDERED: IOHEXOL 300 MG/ML 50 ML VIAL ONE (07:51)
[2024-09-30] MEDS ORDERED: LIDOCAINE/PF 1% 30 ML VIAL ONE (07:51)
[2024-09-30 08:23] VITALS: BP 131/65; PULSE 88; RESP 18; TEMP 99.7; O2SAT 100
[2024-09-30 08:31] VITALS: BP 166/69; PULSE 90
[2024-09-30 08:43] VITALS: BP 169/73; PULSE 94
[2024-09-30] MEDS: IOHEXOL 300 MG/ML 50 ML VIAL IVP ONE (08:47)
[2024-09-30] MEDS ORDERED: SODIUM CHLORIDE 0.9% 500 ML IV ONE (09:34)
[2024-09-30 09:36] LABS: GLUCOMETER DEV NAME(LOC) 4E.2; GLUCOSE,POINT OF CARE 270 MG/DL (70-110)
[2024-09-30 09:36] LABS: GLUCOMETER DEV NAME(LOC) 4E.2; GLUCOSE,POINT OF CARE 261 MG/DL (70-110)
[2024-09-30 09:36] LABS: GLUCOMETER DEV NAME(LOC) 4E.2; GLUCOSE,POINT OF CARE 197 MG/DL (70-110)
[2024-09-30 09:36] LABS: GLUCOMETER DEV NAME(LOC) 4E.2; GLUCOSE,POINT OF CARE 228 MG/DL (70-110)
[2024-09-30 09:36] LABS: GLUCOMETER DEV NAME(LOC) 4E.2; GLUCOSE,POINT OF CARE 274 MG/DL (70-110)
[2024-09-30 16:49] VITALS: BP 122/86; PULSE 78; RESP 20; TEMP 98.2; O2SAT 100
[2024-09-30 18:01] LABS: GLUCOMETER DEV NAME(LOC) 6N.1B; GLUCOSE,POINT OF CARE 239 MG/DL (70-110)
[2024-09-30] MEDS ORDERED: DEXTROSE 50%-WATER 25 GM/50 ML SYRINGE IVP PRN (18:30)
[2024-09-30] MEDS ORDERED: INSULIN LISPRO 100 UNITS/ML SQ PRN (18:30)
[2024-09-30] MEDS: *CLINICAL-LEVOFLOXACIN ORAL DOSING CLINICAL ONE (18:40)
[2024-09-30 19:51] VITALS: BP 112/60; PULSE 70; RESP 18; TEMP 97.6; O2SAT 97
[2024-10-01 05:07] VITALS: BP 126/63; PULSE 82; RESP 18; TEMP 98.1; O2SAT 97
[2024-10-01 06:20] LABS: GLUCOMETER DEV NAME(LOC) 6N.1B; GLUCOSE,POINT OF CARE 257 MG/DL (70-110)
[2024-10-01 07:35] LABS: GLUCOMETER DEV NAME(LOC) 6N.1B; GLUCOSE,POINT OF CARE 232 MG/DL (70-110)
[2024-10-01] MEDS ORDERED: ZOLPIDEM TARTRATE 5 MG TABLET PO PRN (08:30)
[2024-10-01] MEDS ORDERED: MINERAL OIL 133 ML ENEMA PR PRN (08:30)
[2024-10-01] MEDS: HEPARIN SODIUM,PORCINE 5,000 UNITS/ML VIAL SQ SCH (08:30)
[2024-10-01] MEDS ORDERED: BISACODYL 10 MG RECTAL RECTAL SUPPOSITORY PR PRN (08:30)
[2024-10-01] MEDS: LOSARTAN POTASSIUM 25 MG TABLET GT SCH (09:00)
[2024-10-01 09:11] VITALS: BP 104/57; PULSE 89; RESP 18; TEMP 98.2; O2SAT 100
[2024-10-01] MEDS: DOCUSATE SODIUM 100 MG/10 ML LIQUID UDCUP PEG SCH (10:54)
[2024-10-01] MEDS: ATORVASTATIN CALCIUM 20 MG TABLET GT SCH (10:54)
[2024-10-01] MEDS: LACTULOSE 20 GM/30 ML SOLUTION UDCUP GT SCH (10:54)
[2024-10-01] MEDS: LevETIRAcetam 100 MG/ML 5 ML SOLUTION UDCUP PO SCH (10:54)
[2024-10-01] MEDS: SENNOSIDES 8.6 MG TABLET PO SCH (10:54)
[2024-10-01] MEDS: METOCLOPRAMIDE HCL 10 MG/10 ML SOLUTION ORAL.SYG GT SCH (10:55)
[2024-10-01] MEDS ORDERED: LEVO-72 GT (13:53)
[2024-10-01 16:26] VITALS: BP 117/51; PULSE 93; RESP 18; TEMP 99; O2SAT 98
[2024-10-01] MEDS ORDERED: INSULIN GLARGINE,HUM.REC.ANLOG 100 UNITS/ML SQ SCH (21:00)
[2024-10-02 05:30] LABS: GLUCOMETER DEV NAME(LOC) 4E.2; GLUCOSE,POINT OF CARE 243 MG/DL (70-110)
[2024-10-02 15:35] LABS: CANDIDA AURIS PCR,SURVEILLANCE Not Detected C(t) (Not Detectd)
== END 2024-10-01 17:58 | DRG 393 ==
LOC: EMS 11:02 → EDH 14:17 → 4E 17:10
PROVIDERS: ADMIT Internal Medicine; ATTEND Internal Medicine
PROC: 0D20XUZ Change Feeding Device in Upper Intestinal Tract, External Approach (ICD-10-PCS; principal; 2024-09-30)
DX: K94.23 Gastrostomy malfunction (principal); G82.50 Quadriplegia, unspecified; L03.311 Cellulitis of abdominal wall; G40.909 Epilepsy, unspecified, not intractable, without status epilepticus; D63.8 Anemia in other chronic diseases classified elsewhere; E11.9 Type 2 diabetes mellitus without complications; I50.9 Heart failure, unspecified; E86.0 Dehydration; I11.0 Hypertensive heart disease with heart failure; E78.00 Pure hypercholesterolemia, unspecified; F03.90 Unspecified dementia, unspecified severity, without behavioral disturbance, psychotic disturbance, mood disturbance, and anxiety; J44.9 Chronic obstructive pulmonary disease, unspecified; Y83.8 Other surgical procedures as the cause of abnormal reaction of the patient, or of later complication, without mention of misadventure at the time of the procedure; Y82.8 Other medical devices associated with adverse incidents; Y92.89 Other specified places as the place of occurrence of the external cause; Z79.84 Long term (current) use of oral hypoglycemic drugs; Z79.899 Other long term (current) drug therapy
CPT/HCPCS: 36245; 49450; 71045; 74176; 76000; 80048; 81001; 82962; 85025; 87070; 87081; 87086; 87186; 87205; 87481; 93005; 99242; 99285; G0378; J0696; J0712; J1644; J1815; J3490; J7040; J7050; J7060; Q9967; 36415-L1; 36415-TC

== ENCOUNTER 2024-10-01 20:31 | Inpatient (IN) | payer MEDICARE, OTHER ==
[~2024-10-01] VITALS: Ht 160 cm; Wt 65.3 kg
[~2024-10-01 20:31] MED LIST changes: +LEVO-72 GT
[2024-10-01 22:30] LABS: PLATELET COUNT (AUTO) 356 K/uL (150-450); RED BLOOD CELL COUNT(AUTO) 3.06 MIL/uL (4.00-5.20); RED CELL DISTRIBUTION WIDTH 14.1 % (11.5-14.5); WHITE BLOOD COUNT (AUTO) 11.9 K/uL (4.5-11.0)
[2024-10-01 22:48] LABS: LACTIC ACID 1.9 mmol/L (0.4-2.0)
[2024-10-01 22:51] LABS: CALCIUM, TOTAL 9.7 mg/dL (8.8-10.5); CREATININE 1.11 mg/dL (0.60-1.30); GLOMERULAR FILTR. RATE CALC 47 mL/min (>60); GLUCOSE,RANDOM 334 mg/dL (70-110); SODIUM SERUM 143 mmol/L (136-145); UREA NITROGEN, BLOOD 11 mg/dL (7-18)
[2024-10-01 23:12] LABS: TROPONIN I-HIGH SENSITIVITY 6 ng/L (<51)
[2024-10-01] MEDS: PIPERACILLIN/TAZO 3.375 GM/D5W 50 ML IV ONE (23:26)
[2024-10-01] MEDS: SODIUM CHLORIDE 0.9% 2,050 ML IV ONE (23:26)
[2024-10-01] MEDS: ACETAMINOPHEN 1000 MG/ISO-OSM 100 ML IV ONE (23:26)
[2024-10-01] MEDS ORDERED: IOHEXOL 350 MG/ML 100 ML VIAL ONE (23:37)
[2024-10-02] MEDS ORDERED: ONDANSETRON HCL 4 MG/2 ML VIAL IVP PRN (00:15)
[2024-10-02] MEDS ORDERED: DEXTROSE 50%-WATER 25 GM/50 ML SYRINGE IVP PRN (00:15)
[2024-10-02] MEDS: INSULIN GLARGINE,HUM.REC.ANLOG 100 UNITS/ML SQ ONE (01:12)
[2024-10-02 01:40] LABS: APPEARANCE,URINE HAZY (CLEAR); GLUCOSE, URINE (UA) >=1000 mg/dL (NEGATIVE); LEUKOCYTE ESTERASE ,URINE LARGE (NEGATIVE); OCCULT BLOOD,URINE SMALL (NEGATIVE); SPECIFIC GRAVITIY, URINE 1.018 (1.003-1.030)
[2024-10-02 01:58] LABS: NITRATE,URINE NEGATIVE (NEGATIVE); SQUAMOUS EPITHELIAL CELL,UR Few /LPF (None Seen); YEAST,URINE Many /HPF (None Seen)
[2024-10-02 02:05] VITALS: BP 128/74; PULSE 109; RESP 18; TEMP 100.2; O2SAT 98
[2024-10-02 04:01] VITALS: BP 122/52; PULSE 95; RESP 17; TEMP 98.6; O2SAT 100
[2024-10-02] MEDS ORDERED: SODIUM CHLORIDE 0.9% 500 ML IV ONE (05:07)
[2024-10-02] MEDS: PIPERACILLIN/TAZO 3.375 GM/D5W 50 ML IV SCH (05:12)
[2024-10-02 07:11] LABS: GLUCOMETER DEV NAME(LOC) 5N.2C; GLUCOSE,POINT OF CARE 279 MG/DL (70-110)
[2024-10-02 08:10] VITALS: BP 119/69; PULSE 96; RESP 18; TEMP 98.2; O2SAT 98
[2024-10-02] MEDS: DOCUSATE SODIUM 100 MG/10 ML LIQUID UDCUP GT SCH (09:03)
[2024-10-02] MEDS: LevETIRAcetam 100 MG/ML 5 ML SOLUTION UDCUP GT SCH (09:03)
[2024-10-02] MEDS: HEPARIN SODIUM,PORCINE 5,000 UNITS/ML VIAL SQ SCH (09:03)
[2024-10-02] MEDS: FAMOTIDINE 20 MG/2.5 ML SUSPENSION ORAL.SYG GT SCH (09:06)
[2024-10-02 12:35] LABS: GLUCOMETER DEV NAME(LOC) 5N.1D; GLUCOSE,POINT OF CARE 228 MG/DL (70-110)
[2024-10-02 14:44] LABS: ASPARTATE AMINOTRANSFERASE 33.0 U/L (15-37); TOTAL PROTEIN, SERUM 7.9 g/dL (6.4-8.2)
[2024-10-02 16:02] VITALS: BP 146/72; PULSE 67; RESP 17; TEMP 97.9; O2SAT 97
[2024-10-02] MEDS: INSULIN GLARGINE,HUM.REC.ANLOG 100 UNITS/ML SQ SCH (16:13)
[2024-10-02] MEDS: INSULIN LISPRO 100 UNITS/ML SQ PRN (18:34)
[2024-10-02 19:35] LABS: INFLUENZA A-RTPCR,COMBO NEGATIVE (NEGATIVE); INFLUENZA B-RTPCR,COMBO NEGATIVE (NEGATIVE); RESPIRATORY SYNCYTIAL VRS-PCR NEGATIVE (NEGATIVE); SARS COVID19 RTPCR, COMBO NEGATIVE (NEGATIVE)
[2024-10-02] MEDS ORDERED: INDIUM IN-111 OXYQUINOLINE/.5MCL ISOTOPE 1 EA INJ INJ ONE (20:15)
[2024-10-02 20:26] VITALS: BP 112/61; PULSE 93; RESP 18; TEMP 98.6; O2SAT 100
[2024-10-02 23:36] VITALS: BP 154/75; PULSE 108; RESP 18; TEMP 99.1; O2SAT 100
[2024-10-03 05:15] VITALS: BP 131/66; PULSE 88; RESP 17; TEMP 99.8; O2SAT 100
[2024-10-03] MEDS: ACETAMINOPHEN 650 MG/20.3 ML SOLUTION UDCUP GT PRN (05:22)
[2024-10-03 07:00] LABS: GLUCOMETER DEV NAME(LOC) 5N.1D; GLUCOSE,POINT OF CARE 190 MG/DL (70-110)
[2024-10-03 08:22] VITALS: BP 90/48; PULSE 80; RESP 19; TEMP 99.3; O2SAT 100
[2024-10-03 08:37] LABS: ASPARTATE AMINOTRANSFERASE 34.0 U/L (15-37); CALCIUM, TOTAL 9.2 mg/dL (8.8-10.5); CREATININE 1.23 mg/dL (0.60-1.30); GLOMERULAR FILTR. RATE CALC 42.0 mL/min (>60); GLUCOSE,RANDOM 216.0 mg/dL (70-110); SODIUM SERUM 142.0 mmol/L (136-145); TOTAL PROTEIN, SERUM 7.1 g/dL (6.4-8.2); UREA NITROGEN, BLOOD 10.0 mg/dL (7-18)
[2024-10-03 08:45] LABS: GLUCOMETER DEV NAME(LOC) 5N.2C; GLUCOSE,POINT OF CARE 196 MG/DL (70-110)
[2024-10-03] MEDS: SODIUM CHLORIDE 0.9% 500 ML IV ONE (09:01)
[2024-10-03 12:35] LABS: GLUCOMETER DEV NAME(LOC) 5N.2C; GLUCOSE,POINT OF CARE 137 MG/DL (70-110)
[2024-10-03 12:42] LABS: PLATELET COUNT (AUTO) 295 K/uL (150-450); RED BLOOD CELL COUNT(AUTO) 2.51 MIL/uL (4.00-5.20); RED CELL DISTRIBUTION WIDTH 14.2 % (11.5-14.5); WHITE BLOOD COUNT (AUTO) 9.5 K/uL (4.5-11.0)
[2024-10-03] MEDS: POTASSIUM CHL 10 MEQ/WATER 50 ML IV PRN (13:12)
[2024-10-03 16:09] VITALS: BP 124/78; PULSE 92; RESP 18; TEMP 98.1; O2SAT 99
[2024-10-03 18:10] LABS: GLUCOMETER DEV NAME(LOC) 5N.2C; GLUCOSE,POINT OF CARE 179 MG/DL (70-110)
[2024-10-03 20:00] VITALS: BP 140/68; PULSE 95; RESP 18; RESP 20; TEMP 98.6; O2SAT 100
[2024-10-03] MEDS: ETHYL ALCOHOL 62% ANTISEPTIC NASAL SANITIZER 0.6 ML AMPUL NASAL SCH (21:53)
[2024-10-04 00:30] LABS: GLUCOMETER DEV NAME(LOC) 5N.2C; GLUCOSE,POINT OF CARE 167 MG/DL (70-110)
[2024-10-04 05:16] VITALS: BP 151/76; PULSE 90; RESP 18; TEMP 98; O2SAT 100
[2024-10-04 08:01] LABS: GLUCOMETER DEV NAME(LOC) 5N.2C; GLUCOSE,POINT OF CARE 155 MG/DL (70-110)
[2024-10-04 08:21] LABS: GLUCOMETER DEV NAME(LOC) 5N.2C; GLUCOSE,POINT OF CARE 187 MG/DL (70-110)
[2024-10-04 08:27] VITALS: BP 144/71; PULSE 87; RESP 18; TEMP 98.4; O2SAT 95
[2024-10-04 11:36] LABS: GLUCOMETER DEV NAME(LOC) 5N.2C; GLUCOSE,POINT OF CARE 189 MG/DL (70-110)
[2024-10-04 11:47] VITALS: BP 136/64; PULSE 78; RESP 19; TEMP 98.2; O2SAT 100
[2024-10-04] MEDS ORDERED: PIPE3.3772 IV (13:25)
[2024-10-04 15:40] VITALS: BP 145/54; PULSE 82; RESP 18; TEMP 98.1; O2SAT 100
[2024-10-04 17:26] LABS: GLUCOMETER DEV NAME(LOC) 5N.2C; GLUCOSE,POINT OF CARE 210 MG/DL (70-110)
[2024-10-04 20:37] VITALS: BP 143/71; PULSE 81; RESP 18; TEMP 98.1; O2SAT 99
[2024-10-04] MEDS ORDERED: SODIUM CHLORIDE 0.9% 250 ML IV ONE (22:02)
[2024-10-05 05:32] VITALS: BP 148/71; PULSE 83; RESP 18; TEMP 98.8; O2SAT 98
[2024-10-05 06:26] LABS: PLATELET COUNT (AUTO) 298 K/uL (150-450); RED BLOOD CELL COUNT(AUTO) 2.59 MIL/uL (4.00-5.20); RED CELL DISTRIBUTION WIDTH 14.3 % (11.5-14.5); WHITE BLOOD COUNT (AUTO) 4.1 K/uL (4.5-11.0)
[2024-10-05 06:53] LABS: ASPARTATE AMINOTRANSFERASE 19.0 U/L (15-37); CALCIUM, TOTAL 8.6 mg/dL (8.8-10.5); CREATININE 0.91 mg/dL (0.60-1.30); GLOMERULAR FILTR. RATE CALC 59.0 mL/min (>60); GLUCOSE,RANDOM 226.0 mg/dL (70-110); SODIUM SERUM 142.0 mmol/L (136-145); TOTAL PROTEIN, SERUM 6.9 g/dL (6.4-8.2); UREA NITROGEN, BLOOD 11.0 mg/dL (7-18)
[2024-10-05 08:04] VITALS: BP 136/71; PULSE 80; RESP 18; TEMP 98.7; O2SAT 100
[2024-10-05] MEDS ORDERED: PIPERACILLIN IV SCH (08:15)
[2024-10-05] MEDS ORDERED: SENNOSIDES 8.6 MG TABLET PO PRN (08:15)
[2024-10-05] MEDS ORDERED: D5W IV SCH (08:15)
[2024-10-05] MEDS ORDERED: TAZO IV SCH (08:15)
[2024-10-05] MEDS ORDERED: ZOLPIDEM TARTRATE 5 MG TABLET PO PRN (08:15)
[2024-10-05] MEDS ORDERED: BISACODYL 10 MG RECTAL RECTAL SUPPOSITORY PR PRN (08:15)
[2024-10-05] MEDS ORDERED: MINERAL OIL 133 ML ENEMA PR PRN (08:15)
[2024-10-05] MEDS ORDERED: INSULIN GLARGINE,HUM.REC.ANLOG 100 UNITS/ML SQ SCH ×2 (09:00→21:00)
[2024-10-05] MEDS: DOCUSATE SODIUM 100 MG/10 ML LIQUID UDCUP PEG SCH (09:00)
[2024-10-05] MEDS: LOSARTAN POTASSIUM 25 MG TABLET GT SCH (12:57)
[2024-10-05] MEDS: LACTULOSE 20 GM/30 ML SOLUTION UDCUP GT SCH (12:57)
[2024-10-05] MEDS: ATORVASTATIN CALCIUM 20 MG TABLET GT SCH (12:58)
[2024-10-05] MEDS: METOCLOPRAMIDE HCL 10 MG/10 ML SOLUTION ORAL.SYG GT SCH (12:59)
[2024-10-05 16:03] VITALS: BP 121/54; PULSE 76; RESP 18; TEMP 98.4; O2SAT 99
[2024-10-05 17:11] LABS: GLUCOMETER DEV NAME(LOC) 4E.2; GLUCOSE,POINT OF CARE 209 MG/DL (70-110)
[2024-10-05 17:11] LABS: GLUCOMETER DEV NAME(LOC) 4E.2; GLUCOSE,POINT OF CARE 211 MG/DL (70-110)
[2024-10-05 17:11] LABS: GLUCOMETER DEV NAME(LOC) 4E.2; GLUCOSE,POINT OF CARE 241 MG/DL (70-110)
[2024-10-06 03:35] LABS: GLUCOMETER DEV NAME(LOC) 6N.1B; GLUCOSE,POINT OF CARE 204 MG/DL (70-110)
[2024-10-06 12:24] LABS: CANDIDA AURIS PCR,SURVEILLANCE Not Detected C(t) (Not Detectd)
== END 2024-10-05 20:00 | DRG 871 ==
LOC: EMS 20:32 → EDH 10-02 00:02 → UNDOADMIN 10-02 00:16 → EDH 10-02 02:05 → 5N 10-02 02:05 → 4E 10-04 20:10
PROVIDERS: ADMIT Internal Medicine; ATTEND Internal Medicine
DX: A41.9 Sepsis, unspecified organism (principal); J15.1 Pneumonia due to Pseudomonas; R53.2 Functional quadriplegia; J96.11 Chronic respiratory failure with hypoxia; J44.0 Chronic obstructive pulmonary disease with (acute) lower respiratory infection; E11.65 Type 2 diabetes mellitus with hyperglycemia; Z20.822 Contact with and (suspected) exposure to COVID-19; F01.50 Vascular dementia, unspecified severity, without behavioral disturbance, psychotic disturbance, mood disturbance, and anxiety; D63.8 Anemia in other chronic diseases classified elsewhere; I11.0 Hypertensive heart disease with heart failure; I50.9 Heart failure, unspecified; D50.9 Iron deficiency anemia, unspecified; E78.00 Pure hypercholesterolemia, unspecified; R13.10 Dysphagia, unspecified; R74.8 Abnormal levels of other serum enzymes; Z86.718 Personal history of other venous thrombosis and embolism; Z79.4 Long term (current) use of insulin; Z86.73 Personal history of transient ischemic attack (TIA), and cerebral infarction without residual deficits; Z74.01 Bed confinement status; Z79.899 Other long term (current) drug therapy
CPT/HCPCS: 71045; 71250; 72192; 74150; 76705; 78806; 80048; 80053; 80076; 81001; 82962; 83605; 83690; 83735; 84132; 84484; 85025; 87040; 87081; 87086; 87205; 87481; 87637; 93005; 96365; 96368; 99291; A9547; G0378; J0131; J1644; J1815; J2543; J3480; J7040; J7050; 36415-L1; 36415-TC

== ENCOUNTER 2024-10-09 02:04 | Emergency (ER) | payer MEDICARE, OTHER ==
[~2024-10-09] VITALS: Ht 165.1 cm; Wt 72.7 kg
[~2024-10-09 02:04] MED LIST changes: +PIPE3.3772 IV
[2024-10-09 05:36] LABS: ASPARTATE AMINOTRANSFERASE 14.0 U/L (15-37); TOTAL PROTEIN, SERUM 7.6 g/dL (6.4-8.2)
[2024-10-09 05:42] LABS: PLATELET COUNT (AUTO) 336 K/uL (150-450); RED BLOOD CELL COUNT(AUTO) 2.50 MIL/uL (4.00-5.20); RED CELL DISTRIBUTION WIDTH 14.8 % (11.5-14.5); WHITE BLOOD COUNT (AUTO) 12.5 K/uL (4.5-11.0)
[2024-10-09 05:44] LABS: CALCIUM, TOTAL 8.8 mg/dL (8.8-10.5); CREATININE 1.01 mg/dL (0.60-1.30); GLOMERULAR FILTR. RATE CALC 52 mL/min (>60); GLUCOSE,RANDOM 187 mg/dL (70-110); SODIUM SERUM 145 mmol/L (136-145); UREA NITROGEN, BLOOD 15 mg/dL (7-18)
[2024-10-09 05:53] LABS: TROPONIN I-HIGH SENSITIVITY 8 ng/L (<51)
[2024-10-09 08:39] VITALS: BP 141/69; PULSE 97; RESP 22; TEMP 98; O2SAT 100
== END 2024-10-09 09:23 | disposition home or self-care (01) ==
LOC: EMS 02:06
DX: R09.89 Other specified symptoms and signs involving the circulatory and respiratory systems (principal); I11.0 Hypertensive heart disease with heart failure; I50.9 Heart failure, unspecified; J44.9 Chronic obstructive pulmonary disease, unspecified; E11.9 Type 2 diabetes mellitus without complications; E78.00 Pure hypercholesterolemia, unspecified; F03.90 Unspecified dementia, unspecified severity, without behavioral disturbance, psychotic disturbance, mood disturbance, and anxiety; Z86.73 Personal history of transient ischemic attack (TIA), and cerebral infarction without residual deficits; Z93.1 Gastrostomy status; Z79.899 Other long term (current) drug therapy; Z98.890 Other specified postprocedural states
CPT/HCPCS: 71045; 80048; 80076; 83880; 84484; 85025; 93005; 99285; 36415-L1; 36415-TC

== ENCOUNTER 2024-11-28 17:19 | Inpatient (IN) | payer MEDICARE, OTHER ==
[~2024-11-28] VITALS: Ht 147.3 cm; Wt 58.0 kg
[~2024-11-28 17:19] MED LIST changes: +ACET-2163 PO; -ATEN-72 GT; +CEFT1VIA65 IV; -HEPA500018 SQ; +HYDR10TA31 PO; -HYDR25TA84 GT; -LEVO-72 GT; -LOSA-381 GT; -PIPE3.3772 IV
[2024-11-28] MEDS ORDERED: 0.9% SODIUM CHLORIDE 10 ML SYRINGE IVP PRN (17:30)
[2024-11-28] MEDS: SODIUM CHLORIDE 0.9% 1,000 ML IV ONE (17:40)
[2024-11-28] MEDS: NOREPINEPHRINE 8 MG/0.9 % NACL 250 ML IV PRN (17:40)
[2024-11-28 18:15] LABS: GLUCOMETER DEV NAME(LOC) ER.7; GLUCOSE,POINT OF CARE 204 MG/DL (70-110)
[2024-11-28 18:37] LABS: PLATELET COUNT (AUTO) 401 K/uL (150-450); RED BLOOD CELL COUNT(AUTO) 2.70 MIL/uL (4.00-5.20); RED CELL DISTRIBUTION WIDTH 16.8 % (11.5-14.5); WHITE BLOOD COUNT (AUTO) 16.5 K/uL (4.5-11.0)
[2024-11-28 18:40] LABS: CALCIUM, TOTAL 8.6 mg/dL (8.8-10.5); CREATININE 2.42 mg/dL (0.60-1.30); GLOMERULAR FILTR. RATE CALC 19 mL/min (>60); GLUCOSE,RANDOM 255 mg/dL (70-110); SODIUM SERUM 151 mmol/L (136-145); UREA NITROGEN, BLOOD 46 mg/dL (7-18)
[2024-11-28] MEDS ORDERED: ONDANSETRON HCL 4 MG/2 ML VIAL IVP PRN (18:45)
[2024-11-28] MEDS ORDERED: ACETAMINOPHEN 325 MG TABLET GT PRN (18:45)
[2024-11-28 18:47] LABS: ASPARTATE AMINOTRANSFERASE 82 U/L (15-37); CREATINE KINASE, TOTAL ONLY 169 U/L (26-192); TOTAL PROTEIN, SERUM 7.8 g/dL (6.4-8.2)
[2024-11-28 18:53] LABS: LACTIC ACID 1.9 mmol/L (0.4-2.0)
[2024-11-28 18:54] LABS: TROPONIN I-HIGH SENSITIVITY 20 ng/L (<51)
[2024-11-28 19:01] LABS: BAND NEUTROPHILS % (MANUAL) 11 % (0-5); EOSINOPHILS % (MANUAL) 1 % (1-6); LYMPHOCYTES % (MANUAL) 14 % (22-44); MONOCYTES % (MANUAL) 3 % (2-9); SEGMENTED NEUTROPHILS % 71 % (40-70)
[2024-11-28 19:02] LABS: RBC MORPHOLOGY COMMENT NORMAL RBC MORPH
[2024-11-28] MEDS: PHENYLEPHRINE HCL 400 MG in DEXTROSE 5%-WATER 210 ML IV PRN (19:04)
[2024-11-28] MEDS: PIPERACILLIN/TAZO 3.375 GM/D5W 50 ML IV ONE (19:09)
[2024-11-28] MEDS: ACETAMINOPHEN 1000 MG/ISO-OSM 100 ML IV ONE (19:11)
[2024-11-28 19:28] LABS: APPEARANCE,URINE HAZY (CLEAR); GLUCOSE, URINE (UA) NEGATIVE (NEGATIVE); LEUKOCYTE ESTERASE ,URINE LARGE (NEGATIVE); NITRATE,URINE NEGATIVE (NEGATIVE); OCCULT BLOOD,URINE NEGATIVE (NEGATIVE); SPECIFIC GRAVITIY, URINE 1.019 (1.003-1.030)
[2024-11-28 20:11] LABS: SQUAMOUS EPITHELIAL CELL,UR Moderate /LPF (None Seen); YEAST,URINE Many /HPF (None Seen)
[2024-11-28] MEDS: LACTULOSE 20 GM/30 ML SOLUTION UDCUP GT SCH (21:00)
[2024-11-28] MEDS ORDERED: DOCUSATE SODIUM 100 MG CAPSULE PO SCH (21:00)
[2024-11-28] MEDS ORDERED: ZOLPIDEM TARTRATE 5 MG TABLET PO PRN (21:00)
[2024-11-28] MEDS ORDERED: BISACODYL 10 MG RECTAL RECTAL SUPPOSITORY PR PRN (21:00)
[2024-11-28] MEDS: DOCUSATE SODIUM 100 MG/10 ML LIQUID UDCUP GT SCH (21:00)
[2024-11-28] MEDS ORDERED: DEXTROSE 50%-WATER 25 GM/50 ML SYRINGE IVP PRN (21:00)
[2024-11-28] MEDS ORDERED: PHENYLEPHRINE 200 MG/D5%-WATER 250 ML IV PRN (21:00)
[2024-11-28] MEDS: METOCLOPRAMIDE HCL 10 MG/10 ML SOLUTION ORAL.SYG GT SCH (21:00)
[2024-11-28] MEDS ORDERED: ACETAMINOPHEN 650 MG/20.3 ML SOLUTION UDCUP GT PRN (21:07)
[2024-11-28] MEDS ORDERED: ZOLPIDEM TARTRATE 5 MG TABLET GT PRN (21:10)
[2024-11-28] MEDS: RINGERS SOLUTION,LACTATED 1,000 ML IV SCH (21:43)
[2024-11-28] MEDS: INSULIN GLARGINE,HUM.REC.ANLOG 100 UNITS/ML SQ SCH (21:47)
[2024-11-28 23:00] VITALS: BP 128/87; PULSE 108; RESP 18; TEMP 99.1; O2SAT 98
[2024-11-28] MEDS: CHLORHEXIDINE GLUCONATE 2% TOWELETTE [2'S/6'S] TP SCH (23:30)
[2024-11-28] MEDS: LevETIRAcetam 100 MG/ML 5 ML SOLUTION UDCUP GT SCH (23:31)
[2024-11-29] VITALS: BP 102/62; PULSE 88; RESP 20; TEMP 98.3; O2SAT 98
[2024-11-29] MEDS: HEPARIN SODIUM,PORCINE 5,000 UNITS/ML VIAL SQ SCH (00:29)
[2024-11-29] MEDS: PIPERACILLIN SODIUM/TAZOBACTAM 2.25 GM in DEXTROSE 5%-WATER 50 ML IV SCH (02:11)
[2024-11-29] MEDS ORDERED: SODIUM CHLORIDE 0.9% 250 ML IV ONE (02:18)
[2024-11-29 04:00] VITALS: BP 105/63; PULSE 72; RESP 15; TEMP 97.3; O2SAT 99
[2024-11-29 06:05] LABS: GLUCOMETER DEV NAME(LOC) ICU.S7; GLUCOSE,POINT OF CARE 252 MG/DL (70-110)
[2024-11-29] MEDS: INSULIN LISPRO 100 UNITS/ML SQ PRN (06:09)
[2024-11-29 06:35] LABS: PLATELET COUNT (AUTO) 361 K/uL (150-450); RED BLOOD CELL COUNT(AUTO) 2.64 MIL/uL (4.00-5.20); RED CELL DISTRIBUTION WIDTH 16.5 % (11.5-14.5); WHITE BLOOD COUNT (AUTO) 13.3 K/uL (4.5-11.0)
[2024-11-29 06:45] LABS: RBC MORPHOLOGY COMMENT ABNORMAL RBC MORPH
[2024-11-29 07:13] LABS: CALCIUM, TOTAL 8.6 mg/dL (8.8-10.5); CREATININE 2.55 mg/dL (0.60-1.30); GLOMERULAR FILTR. RATE CALC 18.0 mL/min (>60); GLUCOSE,RANDOM 282.0 mg/dL (70-110); SODIUM SERUM 151.0 mmol/L (136-145); UREA NITROGEN, BLOOD 48.0 mg/dL (7-18)
[2024-11-29 08:00] VITALS: BP 124/60; PULSE 71; PULSE 80; RESP 17; TEMP 97.3; O2SAT 99
[2024-11-29] MEDS: ATORVASTATIN CALCIUM 20 MG TABLET GT SCH (08:33)
[2024-11-29] MEDS ORDERED: SENNOSIDES 8.8 MG/5 ML SYRUP UDCUP GT PRN (09:00)
[2024-11-29 12:00] VITALS: BP 110/54; PULSE 68; PULSE 79; RESP 17; TEMP 96.8; O2SAT 99
[2024-11-29 12:56] LABS: GLUCOMETER DEV NAME(LOC) ICU.S7; GLUCOSE,POINT OF CARE 126 MG/DL (70-110)
[2024-11-29] MEDS: DEXTROSE 5%-WATER 500 ML IV ONE (12:59)
[2024-11-29] MEDS ORDERED: IOHEXOL 9 MG/ML 500 ML BOTTLE ONE (13:31)
[2024-11-29 16:00] VITALS: BP 118/59; PULSE 72; PULSE 75; RESP 16; TEMP 96.4; O2SAT 100
[2024-11-29] MEDS: MIDODRINE HCL 5 MG TABLET GT SCH (16:52)
[2024-11-29 18:30] LABS: GLUCOMETER DEV NAME(LOC) ICUN.6; GLUCOSE,POINT OF CARE 223 MG/DL (70-110)
[2024-11-29 19:26] LABS: CREATININE,URINE RANDOM 57.7 mg/dL (30.0-125.0); UREA NITROGEN,URINE RANDOM 706.0 mg/dL (350-1000)
[2024-11-29 20:00] VITALS: BP 141/72; PULSE 78; RESP 13; TEMP 97.2; O2SAT 100
[2024-11-29 21:15] LABS: GLUCOMETER DEV NAME(LOC) ICUN.6; GLUCOSE,POINT OF CARE 187 MG/DL (70-110)
[2024-11-30] VITALS: BP 110/55; PULSE 72; RESP 13; TEMP 97.7; O2SAT 96
[2024-11-30 04:00] VITALS: BP 113/58; PULSE 74; RESP 15; TEMP 97.7; O2SAT 96
[2024-11-30 05:55] LABS: GLUCOMETER DEV NAME(LOC) ICU.S7; GLUCOSE,POINT OF CARE 140 MG/DL (70-110)
[2024-11-30 06:24] LABS: CALCIUM, TOTAL 8.5 mg/dL (8.8-10.5); CREATININE 1.75 mg/dL (0.60-1.30); GLOMERULAR FILTR. RATE CALC 28.0 mL/min (>60); GLUCOSE,RANDOM 165.0 mg/dL (70-110); SODIUM SERUM 146.0 mmol/L (136-145); UREA NITROGEN, BLOOD 35.0 mg/dL (7-18)
[2024-11-30 06:53] LABS: PLATELET COUNT (AUTO) 310 K/uL (150-450); RED BLOOD CELL COUNT(AUTO) 2.35 MIL/uL (4.00-5.20); RED CELL DISTRIBUTION WIDTH 16.5 % (11.5-14.5); WHITE BLOOD COUNT (AUTO) 7.3 K/uL (4.5-11.0)
[2024-11-30 07:12] LABS: PHOSPHORUS 2.7 mg/dL (2.5-4.9)
[2024-11-30 08:00] VITALS: BP 108/58; PULSE 81; PULSE 85; RESP 15; TEMP 97.7; O2SAT 98
[2024-11-30 09:17] LABS: RBC MORPHOLOGY COMMENT ABNORMAL RBC MORPH
[2024-11-30 12:00] VITALS: BP 102/53; PULSE 81; RESP 16; TEMP 98; O2SAT 98
[2024-11-30 16:00] VITALS: BP 95/57; PULSE 79; PULSE 81; RESP 15; TEMP 98.7; O2SAT 97
[2024-11-30 17:56] LABS: GLUCOMETER DEV NAME(LOC) ICU.S7; GLUCOSE,POINT OF CARE 216 MG/DL (70-110)
[2024-11-30 20:00] VITALS: BP 101/53; PULSE 83; RESP 19; TEMP 98.4; O2SAT 98
[2024-11-30] MEDS: MINERAL OIL 133 ML ENEMA PR PRN (20:38)
[2024-11-30 23:41] LABS: GLUCOMETER DEV NAME(LOC) ICUN.6; GLUCOSE,POINT OF CARE 161 MG/DL (70-110)
[2024-12-01] VITALS (7 sets, daily range): BP systolic 111–143; BP diastolic 53–74; PULSE 65–85; RESP 4–18; TEMP 97.7–98.2; O2SAT 96–99
[2024-12-01 06:00] LABS: PLATELET COUNT (AUTO) 305 K/uL (150-450); RED BLOOD CELL COUNT(AUTO) 2.50 MIL/uL (4.00-5.20); RED CELL DISTRIBUTION WIDTH 15.8 % (11.5-14.5); WHITE BLOOD COUNT (AUTO) 5.9 K/uL (4.5-11.0)
[2024-12-01 06:10] LABS: PHOSPHORUS 2.4 mg/dL (2.5-4.9)
[2024-12-01 06:18] LABS: ASPARTATE AMINOTRANSFERASE 17.0 U/L (15-37); CALCIUM, TOTAL 8.6 mg/dL (8.8-10.5); CREATININE 1.34 mg/dL (0.60-1.30); GLOMERULAR FILTR. RATE CALC 38.0 mL/min (>60); GLUCOSE,RANDOM 138.0 mg/dL (70-110); SODIUM SERUM 146.0 mmol/L (136-145); TOTAL PROTEIN, SERUM 7.2 g/dL (6.4-8.2); UREA NITROGEN, BLOOD 25.0 mg/dL (7-18)
[2024-12-01 06:50] LABS: GLUCOMETER DEV NAME(LOC) ICU.S7; GLUCOSE,POINT OF CARE 133 MG/DL (70-110)
[2024-12-01] MEDS: SODIUM,POTASSIUM PHOSPHATES POWDER PACKET PO SCH (09:27)
[2024-12-01 13:31] LABS: GLUCOMETER DEV NAME(LOC) ICUN.6; GLUCOSE,POINT OF CARE 151 MG/DL (70-110)
[2024-12-01] MEDS: DEXTROSE 5%-WATER 500 ML IV ONE (16:51)
[2024-12-01] MEDS: FLUCONAZOLE 200 MG/NACL ISOOSM 100 ML IV SCH (17:10)
[2024-12-01] MEDS ORDERED: SODIUM CHLORIDE 0.9% 500 ML IV ONE (18:35)
[2024-12-02 04:07] VITALS: BP 116/74; PULSE 79; RESP 18; TEMP 97.3; O2SAT 100
[2024-12-02 06:52] LABS: CALCIUM, TOTAL 8.4 mg/dL (8.8-10.5); CREATININE 1.09 mg/dL (0.60-1.30); GLOMERULAR FILTR. RATE CALC 48.0 mL/min (>60); GLUCOSE,RANDOM 170.0 mg/dL (70-110); SODIUM SERUM 141.0 mmol/L (136-145); UREA NITROGEN, BLOOD 19.0 mg/dL (7-18)
[2024-12-02 06:56] LABS: PHOSPHORUS 2.7 mg/dL (2.5-4.9)
[2024-12-02 07:12] LABS: PLATELET COUNT (AUTO) 293 K/uL (150-450); RED BLOOD CELL COUNT(AUTO) 2.54 MIL/uL (4.00-5.20); RED CELL DISTRIBUTION WIDTH 15.6 % (11.5-14.5); WHITE BLOOD COUNT (AUTO) 5.0 K/uL (4.5-11.0)
[2024-12-02 08:42] VITALS: BP 131/81; PULSE 82; RESP 16; TEMP 97.9; O2SAT 100
[2024-12-02 09:25] LABS: RBC MORPHOLOGY COMMENT ABNORMAL RBC MORPH
[2024-12-02] MEDS: ETHYL ALCOHOL 62% ANTISEPTIC NASAL SANITIZER 0.6 ML AMPUL NASAL SCH (09:34)
[2024-12-02 11:35] VITALS: BP 120/69; PULSE 86; RESP 18; TEMP 97.7; O2SAT 96
[2024-12-02 16:42] VITALS: BP 122/65; PULSE 84; RESP 18; TEMP 98; O2SAT 96
[2024-12-02] MEDS: PIPERACILLIN SODIUM/TAZOBACTAM 2.25 GM in DEXTROSE 5%-WATER 50 ML IV SCH (17:18)
== END 2024-12-02 19:25 | DRG 871 ==
LOC: EMS 17:48 → EDH 18:42 → ICU 22:30 → 5S 12-01 16:11
PROVIDERS: ADMIT Internal Medicine; ATTEND Internal Medicine
DX: A41.9 Sepsis, unspecified organism (principal); J69.0 Pneumonitis due to inhalation of food and vomit; E87.0 Hyperosmolality and hypernatremia; N17.9 Acute kidney failure, unspecified; I13.0 Hypertensive heart and chronic kidney disease with heart failure and stage 1 through stage 4 chronic kidney disease, or unspecified chronic kidney disease; B37.49 Other urogenital candidiasis; E11.22 Type 2 diabetes mellitus with diabetic chronic kidney disease; E03.9 Hypothyroidism, unspecified; N18.9 Chronic kidney disease, unspecified; I25.10 Atherosclerotic heart disease of native coronary artery without angina pectoris; E78.00 Pure hypercholesterolemia, unspecified; I50.9 Heart failure, unspecified; D63.8 Anemia in other chronic diseases classified elsewhere; E83.39 Other disorders of phosphorus metabolism; J44.9 Chronic obstructive pulmonary disease, unspecified; I69.30 Unspecified sequelae of cerebral infarction; Z79.899 Other long term (current) drug therapy; Z74.01 Bed confinement status; Z79.4 Long term (current) use of insulin; Z79.84 Long term (current) use of oral hypoglycemic drugs; Z87.440 Personal history of urinary (tract) infections; Z93.1 Gastrostomy status
CPT/HCPCS: 71045; 71250; 72192; 74150; 76770; 80048; 80053; 80076; 81001; 82550; 82570; 82962; 83605; 83735; 83880; 84100; 84145; 84300; 84484; 84540; 85025; 87040; 87081; 87086; 87106; 87186; 93005; 96365; 99291; J0131; J1450; J1644; J1815; J2370; J2543; J7040; J7050; J7060; J7120; 36415-L1; 36415-TC